=== PATIENT | female | born 1930 | race Caucasian/White ===

== ENCOUNTER 2016-09-05 13:35 | Emergency (ER) | payer MEDICARE ==
[~2016-09-05] VITALS: Ht 167.6 cm; Wt 80.0 kg
[~2016-09-05 13:35] MED LIST: ALBU8I INH; CARV6.25 PO; COUM3TAB PO; FURO1TAB93 PO; LORA0.5T PO; LOVA1TAB47 PO; POTA10IN2 PO; PRED20 PO; TEMA7.5 PO; WARF6 PO; Z.0.WALKERFRONT
[2016-09-05 13:37] VITALS: BP 164/91; PULSE 118; RESP 16; TEMP 97.9; O2SAT 92
[2016-09-05 15:00] VITALS: BP 136/91; PULSE 100; RESP 20; O2SAT 98
[2016-09-05] MEDS ORDERED: WARF-58 PO ×2 (15:02)
[2016-09-05] MEDS ORDERED: LOVA40TA PO (15:02)
[2016-09-05] MEDS ORDERED: VITA100018 PO (15:02)
[2016-09-05] MEDS ORDERED: TEMA15CA PO (15:02)
[2016-09-05] MEDS ORDERED: LORA-373 PO (15:02)
[2016-09-05] MEDS ORDERED: COLA100C3 PO (15:02)
[2016-09-05] MEDS ORDERED: methylPREDNISolone SOD SUCC 125 MG/2 ML VIAL IVP ONE (15:15)
[2016-09-05] MEDS ORDERED: SODIUM CHLORIDE 0.9% FLUSH 5 ML FLUSH IVF PRN (15:15)
--- NOTE | 2016-09-05 15:22 | PD ---
HPI Chief Complaint: Respiratory Distress Time Seen by Provider: 14:53 Travel History International Travel<30 days: No Contact w/Intl Traveler<30days: No Traveled to known affect area: No History of Present Illness HPI 86 years old female complains of wheezing and shortness of breath. Patient has history of reactive airway disease. Patient that she has increasing wheezing and shortness of breath recently. Patient has been using albuterol inhaler without relief. Patient denies any headache. Patient denies any chest pain. Patient denies any coughing congestion. Patient denies any fever chills. Patient denies abdominal pain. PFSH Past Medical History Arthritis: No Asthma: No Atrial Fibrillation: Yes Blood Disorders: No Heart Rhythm Problems: Yes Cancer: No Cardiac Catheterization: Yes Cardiovascular Problems: Yes (CHF, HTN, AFIB) High Cholesterol: Yes Chest Pain: Yes Congestive Heart Failure: Yes COPD: No Coronary Artery Disease: Yes Diabetes: No Diminished Hearing: No Endocrine: No Glaucoma: No Genitourinary: No Hepatitis: No Hiatal Hernia: No Hypertension: Yes Immune Disorder: No Musculoskeletal: Yes Neurologic: No Psychiatric: No Reproductive: No Respiratory: Yes Immunizations Current: Yes Myocardial Infarction: No Sleep Apnea: No Thyroid Disease: No Menopausal: Yes Past Surgical History Abdominal Surgery: No AICD: No Arteriovenous Shunt: No Cardiac Surgery: Yes (CARDIAC CATH) Ear Surgery: No Endocrine Surgery: No Eye Surgery: Yes (CATARACT SX LEFT EYE) Genitourinary Surgery: No Gynecologic Surgery: No Insulin Pump: No Joint Replacement: No Oral Surgery: No Pacemaker: No Thoracic Surgery: No Other Surgery: Yes (SURGERY R. ANKLE) Social History Alcohol Use: Yes (WINE 2X WEEK) Tobacco Use: No Substance Use: No Allergies-Medications (Allergen,Severity, Reaction): Coded Allergies: Codeine (Verified Allergy, Severe, RASH AND VOMITING, 09/05/16) Reported Meds & Prescriptions Reported Meds & Active Scripts Active Reported Warfarin 3 Mg Tab 3 Mg PO THURS Warfarin 3 Mg Tab 3 Mg PO JUSTIN Temazepam 15 Mg Cap 2 Cap PO HS PRN Lovastatin 40 Mg Tab 40 Mg PO DAILY Lorazepam 0.5 Mg Tab 0.5 Mg PO DAILY PRN Colace (Docusate Sodium) 100 Mg Cap 100 Mg PO BID PRN Vitamin D3 (Cholecalciferol) 1,000 Unit Tab 1,000 Units PO DAILY Review of Systems General / Constitutional: No: Fever Eyes: No: Visual changes HENT: No: Headaches Cardiovascular: No: Chest Pain or Discomfort Respiratory: Positive: Shortness of Breath, Wheezing Gastrointestinal: No: Abdominal Pain Genitourinary: No: Dysuria Musculoskeletal: No: Pain Skin: No Rash Neurologic: No: Weakness Psychiatric: No: Depression Endocrine: No: Polydipsia Hematologic/Lymphatic: No: Easy Bruising Physical Exam Narrative GENERAL: Well-nourished, well-developed patient. SKIN: Warm and dry. HEAD: Normocephalic. EYES: No scleral icterus. No injection or drainage. NECK: Supple, trachea midline. No JVD or lymphadenopathy. CARDIOVASCULAR: Regular rate and rhythm without murmurs, gallops, or rubs. RESPIRATORY: Breath sounds equal bilaterally. No accessory muscle use. Patient has mild expiratory wheezes bilaterally. No rhonchi. GASTROINTESTINAL: Abdomen soft, non-tender, nondistended. MUSCULOSKELETAL: No cyanosis, or edema. BACK: Nontender without obvious deformity. No CVA tenderness. Neurologic exam normal. Data Data Last Documented VS Vital Signs Date Time Temp Pulse Resp B/P Pulse Ox O2 Delivery O2 Flow Rate FiO2 09/05/16 15:00 100 20 136/91 98 Room Air 09/05/16 13:37 97.9 Orders Complete Blood Count With Diff (09/05/16 15:04) Comprehensive Metabolic Panel (09/05/16 15:04) B-Type Natriuretic Peptide (09/05/16 15:04) Influenzae A/B Antigen (09/05/16 15:04) Iv Access Insert/Monitor (09/05/16 15:04) Electrocardiogram (09/05/16 15:04) Ecg Monitoring (09/05/16 15:04) Oximetry (09/05/16 15:04) Oxygen Administration (09/05/16 15:04) Chest, Single Ap (09/05/16 15:04) Sodium Chloride 0.9% Flush (Ns Flush) (09/05/16 15:15) Methylprednisolone So Succ Inj (Solumedr (09/05/16 15:15) Albuterol-Ipratropium Neb (Duoneb Neb) (09/05/16 15:15) Labs Laboratory Tests Test 09/05/16 15:13 White Blood Count 8.9 TH/MM3 Red Blood Count 3.79 MIL/MM3 Hemoglobin 11.8 GM/DL Hematocrit 35.5 % Mean Corpuscular Volume 93.6 FL Mean Corpuscular Hemoglobin 31.1 PG Mean Corpuscular Hemoglobin 33.2 % Concent Red Cell Distribution Width 15.4 % Platelet Count 207 TH/MM3 Mean Platelet Volume 8.7 FL Neutrophils (%) (Auto) 76.2 % Lymphocytes (%) (Auto) 10.2 % Monocytes (%) (Auto) 12.2 % Eosinophils (%) (Auto) 1.0 % Basophils (%) (Auto) 0.4 % Neutrophils # (Auto) 6.8 TH/MM3 Lymphocytes # (Auto) 0.9 TH/MM3 Monocytes # (Auto) 1.1 TH/MM3 Eosinophils # (Auto) 0.1 TH/MM3 Basophils # (Auto) 0.0 TH/MM3 CBC Comment DIFF FINAL Differential Comment Sodium Level 138 MEQ/L Potassium Level 3.2 MEQ/L Chloride Level 101 MEQ/L Carbon Dioxide Level 28.4 MEQ/L Anion Gap 9 MEQ/L Blood Urea Nitrogen 16 MG/DL Creatinine 1.13 MG/DL Estimat Glomerular Filtration 46 ML/MIN Rate Random Glucose 106 MG/DL Calcium Level 8.9 MG/DL Total Bilirubin 1.0 MG/DL Aspartate Amino Transf 12 U/L (AST/SGOT) Alanine Aminotransferase 14 U/L (ALT/SGPT) Alkaline Phosphatase 71 U/L Total Protein 7.4 GM/DL Albumin 3.4 GM/DL MDM Medical Decision Making Medical Screen Exam Complete: Yes Emergency Medical Condition: Yes Interpretation(s) Last Impressions Chest X-Ray 09/05/16 1504 Signed Impressions: Service Date/Time: Monday, September 05, 2016 15:06 - CONCLUSION: Significant cardiomegaly without evidence of congestive heart failure. The cardiac silhouette appears increased in size as compared to the prior exam which may be artifact secondary to portable technique. Yvonne King MD 1722 PM. CBC within normal limit. Potassium 3.2. Creatinine 1.13. Differential Diagnosis Differential diagnosis including acute exacerbation reactive airway disease, bronchitis, pneumonia, PE, pneumothorax, CHF. Narrative Course 86 years old female with wheezing and shortness of breath. History of reactive airway disease. Albuterol with Atrovent needed no treatment 2. Solu-Medrol 125 mg IV. Diagnosis Primary Impression: Reactive airway disease with acute exacerbation Patient Instructions: General Instructions Additional Instructions: Albuterol Nebulizer treatment as needed. Follow-up with personal physician. Return if worse. Med/Other Pt SpecificInfo: Prescription(s) given Scripts Prednisone 20 Mg Tab20 Mg PO BID #10 TAB Prov:Anil Figueroa MD 09/05/16 Ipratropium Neb 0.5 Mg/2.5 Ml Amp0.5 Mg NEB Q4HR NEB PRN (SHORTNESS OF BREATH) # 30 NEBULE Ref 0 Prov:Anil Figueroa MD 09/05/16 Albuterol Neb 2.5 Mg/3 Ml Neb2.5 Mg NEB Q4HR NEB PRN (SHORTNESS OF BREATH) #60 NEBULE Ref 0 Prov:Anil Figueroa MD 09/05/16 Nebulizer 1 Mis Mis #1 EA .ROUTE DIRECTED Ref 0 Prov:Anil Figueroa MD 09/05/16 Nebulizer Kit/Tubing/Mout 1 Kit Kit #1 KIT FM DIRECTED Ref 0 Prov:Anil Figueroa MD 09/05/16 Disposition: 01 DISCHARGE HOME Condition: Stable Anil Figueroa MD Sep 05, 2016 15:21
--- NOTE | 2016-09-05 15:28 | RADRPT ---
EXAM DATE/TIME: 09/05/2016 15:06 [facility] COMPARISON: CHEST PA & LAT, June 13, 2016, 8:40. CT BRAIN W/O CONTRAST, June 16, 016, 19:05. INDICATIONS : Short of breath MEDICAL HISTORY : None. Congestive heart failure. Cardiovascular disease Hypertension. SURGICAL HISTORY : None. ENCOUNTER: Initial ACUITY: 2 weeks PAIN SCORE: 0/10 LOCATION: Bilateral chest FINDINGS: A single view of the chest demonstrates the lungs to be symmetrically aerated without evidence of mas s, infiltrate or effusion. There is significant cardiomegaly present. The pulmonary vasculature appea rs normal in caliber. Osseous structures are grossly unremarkable.. Osseous structures are intact. CONCLUSION: Significant cardiomegaly without evidence of congestive heart failure. The cardiac si lhouette appears increased in size as compared to the prior exam which may be artifact secondary to p ortable technique. Yvonne King MD on September 05, 2016 at 15:25 Board Certified Radiologist. This report was verified electronically.
[2016-09-05 15:32] LABS: AUTOMATED NEUTROPHIL # 6.8 TH/MM3 (1.8-7.7); BASOPHIL % 0.4 % (0.0-2.0); EOSINOPHIL # 0.1 TH/MM3 (0-0.4); HEMATOCRIT 35.5 % (35.0-46.0); HEMO FLAGS DIFF FINAL; LYMPH % 10.2 % (9.0-44.0); LYMPHOCYTE # 0.9 TH/MM3 (1.0-4.8); MEAN CELL VOLUME 93.6 FL (80.0-100.0); MEAN CORPUSCULAR HEMOGLOBIN 31.1 PG (27.0-34.0); MEAN CORPUSCULAR HGB CONC 33.2 % (32.0-36.0); MONO % 12.2 % (0.0-8.0); NEUT % 76.2 % (16.0-70.0); PLATELET COUNT 207 TH/MM3 (150-450); RED BLOOD COUNT 3.79 MIL/MM3 (4.00-5.30); RED CELL DISTRIBUTION WIDTH 15.4 % (11.6-17.2); WHITE BLOOD COUNT 8.9 TH/MM3 (4.0-11.0)
[2016-09-05] MEDS: RESP: ALBUTEROL 2.5 MG/IPRATROPIUM 0.5 MG NEB (SCH) INH (15:33)
[2016-09-05 16:00] LABS: ALT (GPT) 14 U/L (10-53); ANION GAP 9 MEQ/L (5-15); AST (GOT) 12 U/L (15-37); BICARBONATE 28.4 MEQ/L (21.0-32.0); BLOOD UREA NITROGEN 16 MG/DL (7-18); CHLORIDE 101 MEQ/L (98-107); GLOMERULAR FILTRATION RATE 46 ML/MIN (>89); POTASSIUM 3.2 MEQ/L (3.5-5.1); SODIUM (NA) 138 MEQ/L (136-145)
[2016-09-05 16:02] LABS: ALKALINE PHOSPHATASE 71 U/L (45-117)
[2016-09-05] MEDS ORDERED: NEBUKIT5 FM (17:31)
[2016-09-05] MEDS ORDERED: NEBULIZER1 MI1 (17:31)
[2016-09-05] MEDS ORDERED: PRED20 PO (17:33)
[2016-09-05] MEDS ORDERED: ALBU0.08 NEB (17:33)
[2016-09-05] MEDS ORDERED: IPRA0.02 NEB (17:33)
[2016-09-05 17:54] LABS: APTT (PATIENT) 33.4 SEC (24.3-30.1); INTERNATIONAL NORMALIZED RATIO 2.2 RATIO; PROTHROMBIN TIME - PATIENT 25.3 SEC (9.8-11.6)
[2016-09-05 18:00] VITALS: BP 155/90; PULSE 95; RESP 16; O2SAT 95
[2016-09-05] MEDS ORDERED: POTASSIUM CHLORIDE 20 MEQ CONTROLLED RELEASE TAB PO ONE (18:15)
--- NOTE | 2016-09-06 14:16 | EKG ---
Date Performed: 09/05/2016 Time Performed: 15:26:36 PTAGE: 86 years EKG: ATRIAL FIBRILLATION NONSPECIFIC ST & T-WAVE ABNORMALITY ABNORMAL RHYTHM ECG PREVIOUS TRACING : 06/06/2016 10.48 Since previous tracing, no significant change noted DOCTOR: Juan Rock Interpretating Date/Time 09/06/2016 14:07:08
[2016-11-04] MEDS ORDERED: LOSA50TA PO (15:43)
[2016-11-04] MEDS ORDERED: K DUR (15:43)
== END 2016-09-05 18:36 | disposition home or self-care (01) ==
LOC: NEPE 13:35
DX: J45.901 Unspecified asthma with (acute) exacerbation (principal); I48.91 Unspecified atrial fibrillation; E78.00 Pure hypercholesterolemia, unspecified; I10 Essential (primary) hypertension; I50.9 Heart failure, unspecified; I25.10 Atherosclerotic heart disease of native coronary artery without angina pectoris
CPT/HCPCS: 71010; 80053; 83880; 85025; 85610; 85730; 87804; 93005; 94640; 94664; 96374; 99284; J2930

== ENCOUNTER 2016-11-04 15:07 | Inpatient (IN) | payer MEDICARE ==
[~2016-11-04] VITALS: Ht 165.1 cm; Wt 83.4 kg
[~2016-11-04 15:07] MED LIST changes: +ALBU0.08 NEB; -ALBU8I INH; -CARV6.25 PO; +COLA100C3 PO; -COUM3TAB PO; -FURO1TAB93 PO; +IPRA0.02 NEB; +LORA-373 PO; -LORA0.5T PO; -LOVA1TAB47 PO; +LOVA40TA PO; +NEBUKIT5 FM; +NEBULIZER1 MI1; -POTA10IN2 PO; +TEMA15CA PO; -TEMA7.5 PO; +VITA100018 PO; +WARF-58 PO; -WARF6 PO; -Z.0.WALKERFRONT
[2016-11-04 15:08] VITALS: BP 131/78; PULSE 77; RESP 14; TEMP 98.1; O2SAT 95
[2016-11-04 15:33] VITALS: PULSE 72; RESP 20; O2SAT 98
[2016-11-04] MEDS ORDERED: FURO40TA PO (15:36)
[2016-11-04] MEDS ORDERED: ZOLP5TAB3 PO (15:36)
[2016-11-04] MEDS ORDERED: K DUR ×2 (15:43)
[2016-11-04] MEDS ORDERED: LOSA50TA PO ×2 (15:43)
[2016-11-04] MEDS ORDERED: CARV6.252 PO (15:43)
[2016-11-04] MEDS ORDERED: METO5TAB3 PO (15:43)
[2016-11-04] MEDS ORDERED: SODIUM CHLORID 0.9% 500 ML INJ 500 ML IV SCH (15:45)
[2016-11-04 16:15] LABS: AUTOMATED NEUTROPHIL # 3.8 TH/MM3 (1.8-7.7); BASOPHIL % 0.6 % (0.0-2.0); EOSINOPHIL # 0.1 TH/MM3 (0-0.4); EOSINOPHIL % 2.1 % (0.0-4.0); HEMATOCRIT 37.7 % (35.0-46.0); HEMO FLAGS DIFF FINAL; LYMPHOCYTE # 1.4 TH/MM3 (1.0-4.8); MEAN CELL VOLUME 88.2 FL (80.0-100.0); MEAN CORPUSCULAR HEMOGLOBIN 30.8 PG (27.0-34.0); MEAN CORPUSCULAR HGB CONC 34.9 % (32.0-36.0); MONO % 13.4 % (0.0-8.0); NEUT % 61.9 % (16.0-70.0); PLATELET COUNT 231 TH/MM3 (150-450); RED BLOOD COUNT 4.27 MIL/MM3 (4.00-5.30); RED CELL DISTRIBUTION WIDTH 14.2 % (11.6-17.2); WHITE BLOOD COUNT 6.2 TH/MM3 (4.0-11.0)
--- NOTE | 2016-11-04 16:15 | PD ---
HPI Chief Complaint: Dizziness Time Seen by Provider: 16:10 Travel History International Travel<30 days: No Contact w/Intl Traveler<30days: No Traveled to known affect area: No History of Present Illness HPI 86-year-old female that presents to the ED for evaluation of weakness, dizziness and cough and runny nose. Per patient she's had this for the past 2 days. Per patient she feels like she is given a fall when she stands up. Per patient this has never happened to her before. She denies any spinning sensation. Per patient she's also been feeling weak for the past couple of days. Per patient she has had no fevers but she does have some mild cough and runny nose. She has a history of CHF and takes blood thinners as well. She denies any changes in bowel movement at that she does admit that she is chronically constipated and her last bowel movement was 2 days ago. Somewhat more likely than normal. She has an allergy to codeine. She denies any abdominal discomfort. No chest pain or shortness of breath. She states been compliant with her medications. She does tell me that she was recently admitted to a new diuretic to help with her CHF as well as she was recently given a new sleeping pill with minimal relief. She denies any falls. Denies any history of CVA or ACS. Symptoms get worse when she stands up. Per patient she feels like she can barely even stand because of weakness. Nothing seems to make the symptoms better than laying. PFSH Past Medical History Arthritis: No Asthma: No Atrial Fibrillation: Yes Blood Disorders: No Heart Rhythm Problems: Yes Cancer: No Cardiac Catheterization: Yes Cardiovascular Problems: Yes (CHF, HTN, AFIB) High Cholesterol: Yes Chest Pain: Yes Congestive Heart Failure: Yes COPD: No Coronary Artery Disease: Yes Diabetes: No Diminished Hearing: No Endocrine: No Glaucoma: No Genitourinary: No Hepatitis: No Hiatal Hernia: No Hypertension: Yes Immune Disorder: No Musculoskeletal: Yes Neurologic: No Psychiatric: No Reproductive: No Respiratory: Yes Immunizations Current: Yes Myocardial Infarction: No Sleep Apnea: No Thyroid Disease: No ?: Not Menopausal: Yes Past Surgical History Abdominal Surgery: No AICD: No Arteriovenous Shunt: No Cardiac Surgery: Yes (CARDIAC CATH) Ear Surgery: No Endocrine Surgery: No Eye Surgery: Yes (CATARACT SX LEFT EYE) Genitourinary Surgery: No Gynecologic Surgery: No Insulin Pump: No Joint Replacement: No Oral Surgery: No Pacemaker: No Thoracic Surgery: No Other Surgery: Yes (SURGERY R. ANKLE) Social History Alcohol Use: Yes (WINE X WEEK) Tobacco Use: No Substance Use: No Allergies-Medications (Allergen,Severity, Reaction): Coded Allergies: Codeine (Verified Allergy, Severe, RASH AND VOMITING, 09/05/16) Reported Meds & Prescriptions Reported Meds & Active Scripts Active Prednisone 20 Mg Tab 20 Mg PO BID Ipratropium Neb (Ipratropium [place]) 0.5 Mg/2.5 Ml Amp 0.5 Mg NEB Q4HR NEB PRN Albuterol Neb (Albuterol Sulfate) 2.5 Mg/3 Ml Neb 2.5 Mg NEB Q4HR NEB PRN Nebulizer 1 Mis Mis 1 Ea .ROUTE DIRECTED Nebulizer Kit/Tubing/Mout (N/A) 1 Kit Kit 1 Kit FM DIRECTED Reported Losartan (Losartan Potassium) 50 Mg Tab 50 Mg PO DAILY Metolazone 5 Mg Tab 5 Mg PO DIRECTED [K Dur] 10 Meq BID Carvedilol 6.25 Mg Tab 6.25 Mg PO BID Furosemide 40 Mg Tab 40 Mg PO BID Zolpidem (Zolpidem Tartrate) 5 Mg Tab 5 Mg PO HS PRN Warfarin 3 Mg Tab 1.5 Mg PO THURS Warfarin 3 Mg Tab 3 Mg PO REYNAUEWEHERNANATSUN Temazepam 15 Mg Cap 2 Cap PO HS PRN Lovastatin 40 Mg Tab 40 Mg PO DAILY Lorazepam 0.5 Mg Tab 0.5 Mg PO DAILY PRN Colace (Docusate Sodium) 100 Mg Cap 100 Mg PO BID PRN Vitamin D3 (Cholecalciferol) 1,000 Unit Tab 1,000 Units PO DAILY Review of Systems General / Constitutional: No: Fever, Chills, Weight Gain, Weight Loss, Other Eyes: No: Diploplia, Blurred Vision, Photophobia, Drainage, Redness, Foreign Body Sensation, Pain, Tearing, Blind Spots, Visual changes, Blindness, Other HENT: Positive: Vertigo, Lightheadedness, Rhinitis, Congestion, No: Headaches , Sore Throat, Rhinorrhea, Nosebleed, Neck Stiffness, Neck Pain, Masses, Gingival Bleeding, Dental Difficulties, Ear Discharge, Earache, Other Cardiovascular: No: Chest Pain or Discomfort, Palpitations, Irregular Rhythm, Tachycardia, Diaphoresis, Syncope, Dyspnea on exertion, Varicosities, Edema, Cyanosis, Varicosities, Phlebitis, Claudication, Other Respiratory: Positive: Cough, No: Shortness of Breath, Wheezing, Sneezing, Orthopnea, Hemoptysis, Stridor, Night Sweats, Pleuritic Pain, Other Gastrointestinal: Positive: Constipation, No: Nausea, Vomiting, Diarrhea, Abdominal Pain, Hematemesis, Hematochezia, Changes in Bowel Habits, Indigestion , Dysphagia, Loss of Appetite, Other Genitourinary: No: Urgency, Frequency, Dysuria, Nocturia, Hematuria, Decreased Urinary Output, Oliguria, Hesitancy, Dribbling, Incontinence, Pelvic Pain, Flank Pain, Dyspareunia, Discharge, Dysmenorrhea, Menorrhagia, Metorrhagia, Vaginal Bleeding, Other Musculoskeletal: Positive: Weakness, No: Myalgias, Arthralgias, Limited ROM, Cramping, Edema, Pain, Atrophy, Other Skin: No Rash, No Itching, No Dryness, No Lumps, No Hives, No Change in Pigmentation, No Change in nails, No Alopecia, No Lesions, No Breast Lumps, No Breast Tenderness, No Breast Swelling, No Other Neurologic: Positive: Weakness, Dizziness, No: Syncope, Focal Abnormalities, Coordination Problem, Tremor, Ataxia, Headache, Change in Mentation, Slurred Speech, Paresthesia, Incontinence, Seizures, Sensory Disturbance, Other Psychiatric: No: Anxiety, Depression, Suicidal Ideations, Disorder of Thought, Mood Disorder, Substance Abuse, Homicidal Ideation, Other Endocrine: No: Heat Intolerance, Cold Intolerance, Polyuria, Polydipsia, Other Hematologic/Lymphatic: No: Easy Bruising, Lymph Node Enlargement, Other Physical Exam Narrative GENERAL: SKIN: Warm and dry. HEAD: Atraumatic. Normocephalic. EYES: Pupils equal and round. No scleral icterus. No injection or drainage. ENT: No nasal bleeding or discharge. Mucous membranes pink and moist. Tongue is midline. No Uvula deviation. TMs are clear with no sign of infection or perforation. No meningeal signs noted. No lymphadenopathy noted. Nostrils are patent bilaterally. NECK: Trachea midline. No JVD. CARDIOVASCULAR: Regular rate and rhythm. No murmurs, S3, S4. RESPIRATORY: No accessory muscle use. Clear to auscultation. Breath sounds equal bilaterally. GASTROINTESTINAL: Abdomen soft, non-tender, nondistended. Hepatic and splenic margins not palpable. MUSCULOSKELETAL: Extremities without clubbing, cyanosis, or edema. No obvious deformities. Full range of motion of the upper and lower extremities bilaterally. 2+ pulses bilaterally. 5 out of 5 strength bilaterally. NEUROLOGICAL: Awake and alert. No obvious cranial nerve deficits. Motor grossly within normal limits. Five out of 5 muscle strength in the arms and legs. Normal speech. PSYCHIATRIC: Appropriate mood and affect; insight and judgment normal. Data Data Last Documented VS Vital Signs Date Time Temp Pulse Resp B/P Pulse Ox O2 Delivery O2 Flow Rate FiO2 11/04/16 15:33 72 20 98 Room Air 11/04/16 15:08 98.1 Orders Electrocardiogram (11/04/16 15:36) Complete Blood Count With Diff (11/04/16 15:36) Comprehensive Metabolic Panel (11/04/16 15:36) Ckmb (Isoenzyme) Profile (11/04/16 15:36) Troponin I (11/04/16 15:36) Prothrombin Time / Inr (Pt) (11/04/16 15:36) Act Partial Throm Time (Ptt) (11/04/16 15:36) Urinalysis - C+S If Indicated (11/04/16 15:36) Magnesium (Mg) (11/04/16 15:36) Thyroid Stimulating Hormone (11/04/16 15:36) Chest, Single Ap (11/04/16 15:36) Ct Brain W/O Iv Contrast(Rout) (11/04/16 15:36) Iv Access Insert/Monitor (11/04/16 15:36) Ecg Monitoring (11/04/16 15:36) Oximetry (11/04/16 15:36) Sodium Chlorid 0.9% 500 Ml Inj (Ns 500 M (11/04/16 15:45) B-Type Natriuretic Peptide (11/04/16 15:38) Influenzae A/B Antigen (11/04/16 15:45) Orthostatic Vital Signs (11/04/16 15:45) Sodium Chlorid 0.9% 500 Ml Inj (Ns 500 M (11/04/16 17:05) Ns + Kcl 20 Meq Inj (Ns + Kcl 20 Meq Inj (11/04/16 17:15) Labs Laboratory Tests Test 11/04/16 16:05 White Blood Count 6.2 TH/MM3 Red Blood Count 4.27 MIL/MM3 Hemoglobin 13.2 GM/DL Hematocrit 37.7 % Mean Corpuscular Volume 88.2 FL Mean Corpuscular Hemoglobin 30.8 PG Mean Corpuscular Hemoglobin 34.9 % Concent Red Cell Distribution Width 14.2 % Platelet Count 231 TH/MM3 Mean Platelet Volume 7.8 FL Neutrophils (%) (Auto) 61.9 % Lymphocytes (%) (Auto) 22.0 % Monocytes (%) (Auto) 13.4 % Eosinophils (%) (Auto) 2.1 % Basophils (%) (Auto) 0.6 % Neutrophils # (Auto) 3.8 TH/MM3 Lymphocytes # (Auto) 1.4 TH/MM3 Monocytes # (Auto) 0.8 TH/MM3 Eosinophils # (Auto) 0.1 TH/MM3 Basophils # (Auto) 0.0 TH/MM3 CBC Comment DIFF FINAL Differential Comment Prothrombin Time 17.2 SEC Prothromb Time International 1.5 RATIO Ratio Activated Partial 28.3 SEC Thromboplast Time Sodium Level 119 MEQ/L Potassium Level 2.8 MEQ/L Chloride Level 77 MEQ/L Carbon Dioxide Level 28.4 MEQ/L Anion Gap 14 MEQ/L Blood Urea Nitrogen 40 MG/DL Creatinine 1.38 MG/DL Estimat Glomerular Filtration 36 ML/MIN Rate Random Glucose 95 MG/DL Calcium Level 8.8 MG/DL Magnesium Level 2.0 MG/DL Total Bilirubin 0.5 MG/DL Aspartate Amino Transf 38 U/L (AST/SGOT) Alanine Aminotransferase 34 U/L (ALT/SGPT) Alkaline Phosphatase 82 U/L Total Creatine Kinase 86 U/L Troponin I 0.02 NG/ML B-Type Natriuretic Peptide 127 PG/ML Total Protein 7.2 GM/DL Albumin 3.5 GM/DL Thyroid Stimulating Hormone 1.910 uIU/ML rust Gen [facility] Medical Decision Making Medical Screen Exam Complete: Yes Emergency Medical Condition: Yes Medical Record Reviewed: Yes Interpretation(s) CBC & BMP Diagram 11/04/16 16:05 EKG shows sinus rhythm with no sign of acute ischemia or arrhythmia rhythm and attending. LFTs and lipase negative. Troponin negative. Last Impressions Head CT 11/04/16 2596 Signed Impressions: Service Date/Time: Friday, November 04, 2016 16:18 - CONCLUSION: 1. No acute intracranial abnormality. 2. Chronic white matter changes. 3. Chronic sphenoid sinus disease. Kaleb Gaspar MD Chest X-Ray 11/04/16 1536 Signed Impressions: Service Date/Time: Friday, November 04, 2016 16:29 - CONCLUSION: No acute cardiopulmonary disease demonstrated. Mild compensated cardiomegaly. Kaleb Gaspar MD Differential Diagnosis CHF exacerbation versus generalized weakness versus ACS versus CVA versus viral illness versus sepsis versus dehydration versus kidney failure Narrative Course 86-year-old female that presents to the ED for evaluation of weakness as well as dizziness. Patient was properly examined and was found to have signs and symptoms consistent with appears to be weakness and lightheadedness. Unclear etiology at this time. She does have unfortunately multiple risk factors for different disease. We will do workup. She agrees to this. Labs and imaging showed hyponatremia and hypokalemia. I spoke with my attending Dr. Galvan who evaluated the patient with me and recommends admission as well starting patient on 500 NS bolus and 20 mEQ of KCL with saline 250 mls. Case was discussed with Dr. Reagan who agrees to admission for his service. Diagnosis Primary Impression: Acute hyponatremia Additional Impressions: Hypokalemia Weakness Admitting Information Admitting Physician Requests: Admit Howard Whitaker Nov 04, 2016 16:15
[2016-11-04 16:28] LABS: APTT (PATIENT) 28.3 SEC (24.3-30.1); INTERNATIONAL NORMALIZED RATIO 1.5 RATIO; PROTHROMBIN TIME - PATIENT 17.2 SEC (9.8-11.6)
--- NOTE | 2016-11-04 16:28 | RADRPT ---
EXAM DATE/TIME: 11/04/2016 16:18 [facility] COMPARISON: CT BRAIN W/O CONTRAST, June 16, 2016, 19:05. INDICATIONS : Dizzy with generalized weakness. RADIATION DOSE: 36.24 CTDIvol (mGy) MEDICAL HISTORY : Hypertension. Cardiovascular disease SURGICAL HISTORY : None. ENCOUNTER: Initial ACUITY: 1 day PAIN SCALE: 0/10 LOCATION: cranial TECHNIQUE: Multiple contiguous axial images were obtained of the head. Using automated exposure control and adj ustment of the mA and/or kV according to patient size, radiation dose was kept as low as reasonably a chievable to obtain optimal diagnostic quality images. FINDINGS: CEREBRUM: The ventricles are normal for age. No evidence of midline shift, mass lesion, hemorrhage or acute in farction. No extra-axial fluid collections are seen. Chronic low attenuation seen in the periventric ular white matter and there is mild atrophy. POSTERIOR FOSSA: The cerebellum and brainstem are intact. The 4th ventricle is midline. The cerebellopontine angle i s unremarkable. EXTRACRANIAL: Mucoperiosteal thickening again noted in the bilateral sphenoid air cells, similar to before. SKULL: The calvaria is intact. No evidence of skull fracture. CONCLUSION: 1. No acute intracranial abnormality. 2. Chronic white matter changes. 3. Chronic sphenoid sinus disease. Kaleb Gaspar MD on November 04, 2016 at 16:26 Board Certified Radiologist. This report was verified electronically.
[2016-11-04 16:51] LABS: ALKALINE PHOSPHATASE 82 U/L (45-117); ALT (GPT) 34 U/L (10-53); ANION GAP 14 MEQ/L (5-15); AST (GOT) 38 U/L (15-37); BICARBONATE 28.4 MEQ/L (21.0-32.0); BLOOD UREA NITROGEN 40 MG/DL (7-18); CHLORIDE 77 MEQ/L (98-107); GLOMERULAR FILTRATION RATE 36 ML/MIN (>89); TOTAL BILIRUBIN ADULT 0.5 MG/DL (0.2-1.0)
--- NOTE | 2016-11-04 16:53 | RADRPT ---
EXAM DATE/TIME: 11/04/2016 16:29 [facility] COMPARISON: CHEST SINGLE AP, September 05, 2016, 15:06. INDICATIONS : Short of breath and syncope MEDICAL HISTORY : Congestive heart failure. Cardiovascular disease Hypertension. SURGICAL HISTORY : None. ENCOUNTER: Initial ACUITY: 1 day PAIN SCORE: 0/10 LOCATION: Bilateral chest FINDINGS: No infiltrate, effusion or pneumothorax demonstrated. There is mild cardiomegaly similar to before. T ortuous thoracic aorta again seen. CONCLUSION: No acute cardiopulmonary disease demonstrated. Mild compensated cardiomegaly. Kaleb Gaspar MD on November 04, 2016 at 16:51 Board Certified Radiologist. This report was verified electronically.
[2016-11-04 16:57] LABS: CREATINE KINASE 86 U/L (26-192)
[2016-11-04 16:59] LABS: SODIUM (NA) 119 MEQ/L (136-145)
[2016-11-04 17:00] LABS: POTASSIUM 2.8 MEQ/L (3.5-5.1)
[2016-11-04] MEDS ORDERED: SODIUM CHLORID 0.9% IV STA (17:05)
[2016-11-04 17:11] VITALS: BP 137/79; PULSE 73; RESP 20; O2SAT 99
[2016-11-04] MEDS ORDERED: NS + KCL 20 MEQ INJ 1,000 ML IV ONE (17:15)
[2016-11-04] MEDS ORDERED: NS + KCL 20 MEQ INJ 1,000 ML IV SCH (17:15)
--- NOTE | 2016-11-04 17:23 | HHI.HP ---
HPI Service [facility] Hospitalists Primary Care Physician Nestor Chung MD Admission Diagnosis hyponatremia Chief Complaint: dizzy Travel History International Travel<30 Days: No Contact w/Intl Traveler <30 Da: No Traveled to Known Affected Are: No History of Present Illness Pt is 86 yo with systolic chf ef 45%. was admitted on May for chf exacerbation. Pt says she was started on zaroxlyn 2 or 3 weeks ago. Over past 3 days more dizzy upon standing, generally weak. no n/v/d. no fevers/chills. In ED pt found to be dehydrated with a/ckd3, hyponatremia and hypokalemia. started on ivf in ED. Review of Systems Other dizzy with standing. weakness Past Family Social History Past Medical History Nonischemic cardiomyopathy 06/12 echo ef 45%..was 35-40% in 2014 Systolic CHF Chronic atrial fibrillation on chronic warfarin therapy Hypertension Hyperlipidemia Coronary artery disease/angina pectoris Stage 3 CKD/Hypertensive CKD, GERD/Hiatal hernia Mild carotid artery disease, carotid ultrasound on 11-12-12 showed mild bilateral plaque of <35%. Osteopenia Hx of TIA in February 2011. Mitral regurgitation Aortic valve stenosis Diverticulosis Vitamin D insufficiency 2D echo on 07-21-15 showed an EF of 35-40% and she had mild to moderate aortic stenosis, mild mitral regurgitation, moderate tricuspid regurgitation. Cardiac cath on 11-01-07 --> noncritical coronary artery disease with a 40% ostial stenosis of the LAD on Cataract surgery Reported Medications Losartan (Losartan Potassium) 50 Mg Tab 50 Mg PO DAILY Metolazone 5 Mg Tab 5 Mg PO DIRECTED [K Dur] 10 Meq BID Carvedilol 6.25 Mg Tab 6.25 Mg PO BID Furosemide 40 Mg Tab 40 Mg PO BID Zolpidem (Zolpidem Tartrate) 5 Mg Tab 5 Mg PO HS PRN Warfarin 3 Mg Tab 1.5 Mg PO THURS Warfarin 3 Mg Tab 3 Mg PO JUANITON Temazepam 15 Mg Cap 2 Cap PO HS PRN Lovastatin 40 Mg Tab 40 Mg PO DAILY Lorazepam 0.5 Mg Tab 0.5 Mg PO DAILY PRN Colace (Docusate Sodium) 100 Mg Cap 100 Mg PO BID PRN Vitamin D3 (Cholecalciferol) 1,000 Unit Tab 1,000 Units PO DAILY Allergies: Coded Allergies: Codeine (Verified Allergy, Severe, RASH AND VOMITING, 3/17/17) Family History Brother with hx of CAD/CABG Brother with hx of lung cancer Mother with hx of CAD Social History Denies any tobacco use Occasional alcohol use, glass of wine 1-2 times per week Pt lives alone, she is 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 Physical Exam Vital Signs heent neg heart reg lung cta abd s/nt ext no edema Vital Signs Date Time Temp Pulse Resp B/P Pulse Ox O2 Delivery O2 Flow Rate FiO2 11/04/16 17:11 73 20 137/79 99 Room Air 11/04/16 15:33 72 20 98 Room Air 11/04/16 15:08 98.1 77 14 131/78 95 Room Air Laboratory Laboratory Tests Test 11/04/16 16:05 White Blood Count 6.2 Red Blood Count 4.27 Hemoglobin 13.2 Hematocrit 37.7 Mean Corpuscular Volume 88.2 Mean Corpuscular Hemoglobin 30.8 Mean Corpuscular Hemoglobin 34.9 Concent Red Cell Distribution Width 14.2 Platelet Count 231 Mean Platelet Volume 7.8 Neutrophils (%) (Auto) 61.9 Lymphocytes (%) (Auto) 22.0 Monocytes (%) (Auto) 13.4 Eosinophils (%) (Auto) 2.1 Basophils (%) (Auto) 0.6 Neutrophils # (Auto) 3.8 Lymphocytes # (Auto) 1.4 Monocytes # (Auto) 0.8 Eosinophils # (Auto) 0.1 Basophils # (Auto) 0.0 CBC Comment DIFF FINAL Differential Comment Prothrombin Time 17.2 Prothromb Time International 1.5 Ratio Activated Partial 28.3 Thromboplast Time Sodium Level 119 Potassium Level 2.8 Chloride Level 77 Carbon Dioxide Level 28.4 Anion Gap 14 Blood Urea Nitrogen 40 Creatinine 1.38 Estimat Glomerular Filtration 36 Rate Random Glucose 95 Calcium Level 8.8 Magnesium Level 2.0 Total Bilirubin 0.5 Aspartate Amino Transf 38 (AST/SGOT) Alanine Aminotransferase 34 (ALT/SGPT) Alkaline Phosphatase 82 Total Creatine Kinase 86 Troponin I 0.02 B-Type Natriuretic Peptide 127 Total Protein 7.2 Albumin 3.5 Thyroid Stimulating Hormone 1.910 3rd Gen Result Diagram: 11/04/16 1605 11/04/16 1605 Assessment and Plan Problem List: (1) Hyponatremia Status: Acute Plan: Pt has chronic systolic chf. currently compensated. recently had metolazone added to lasix over past 3 days she is weak, dizzy upon standing w/up reveals severe dehydration, hyponatremia,hypokalemia, and mild acute /ckd 3 hold diuretics tonight gentle NS replace kcl monitor na level closely telemetry dvt prophylaxis once fluid resuscitated and lytes corrected will need to resume the lasix for her chf. (2) Hypokalemia Status: Acute Plan: see above (3) Weakness Status: Acute Plan: above (4) Dehydration Status: Acute Plan: above (5) Systolic CHF Status: Chronic Plan: compensated. echo 2016 ef 45\% (6) HTN (hypertension) Status: Chronic Plan: home meds (7) CKD (chronic kidney disease) stage 3, GFR 30-59 ml/min Status: Chronic Plan: see above Physician Certification 2 Midnight Certification Type: Admission for Inpatient Services Order for Inpatient Services 3The services are ordered in accordance with Medicare regulations or non- Medicare payer requirements, as applicable. In the case of services not specified as inpatient-only, they are appropriately provided as inpatient services in accordance with the 2-midnight benchmark. Estimated LOS (days): 3 3 days is the estimated time the patient will need to remain in the hospital, assuming treatment plan goals are met and no additional complications. Post-Hospital Plan: Home Pedro Doyle MD Nov 04, 2016 17:23
[2016-11-04] MEDS ORDERED: RESP: ALBUTEROL 2.5 MG/IPRATROPIUM 0.5 MG NEB (PRN) NEB (17:30)
[2016-11-04] MEDS ORDERED: POTASSIUM CHLORIDE 20 MEQ CONTROLLED RELEASE TAB PO ONE (17:30)
--- NOTE | 2016-11-04 17:48 | PD ---
Physical Exam Date Seen by Provider: Nov 04, 2016 Time Seen by Provider: 16:30 Narrative I, Dr. Eaton, have reviewed the advance practice practitioner's documentation and am in agreement, met with the patient face to face, made the diagnosis, and the medical decision making was done by me. *My assessment and Findings: Patient seen and evaluated with PA, please see. Note for further details. She presents to the ER feeling dizzy, nauseous, and has recently been started on new medications by her primary care physician. She has no focal neurological deficits. She is awake, alert, oriented 3. Pulmonary, abdominal, and cardiac enzymes are unremarkable. A. fib at a ventricular rate of 70 bpm, no ST elevation or depression, and no arrhythmias. No significant T-wave inversions. Laboratory Tests Test 11/04/16 16:05 Monocytes (%) (Auto) 13.4 % (0.0-8.0) Prothrombin Time 17.2 SEC (9.8-11.6) Sodium Level 119 MEQ/L (136-145) Potassium Level 2.8 MEQ/L (3.5-5.1) Chloride Level 77 MEQ/L (98-107) Blood Urea Nitrogen 40 MG/DL (7-18) Creatinine 1.38 MG/DL (0.50-1.00) Estimat Glomerular Filtration 36 ML/MIN (>89) Rate Aspartate Amino Transf 38 U/L (15-37) (AST/SGOT) B-Type Natriuretic Peptide 127 PG/ML (0-100) Last [address] 11/04/16 1536 Signed Impressions: Service Date/Time: Friday, November 04, 2016 16:18 - CONCLUSION: 1. No acute intracranial abnormality. 2. Chronic white matter changes. 3. Chronic sphenoid sinus disease. Kaleb Gaspar MD Chest X-Ray 11/04/16 1536 Signed Impressions: Service Date/Time: Friday, November 04, 2016 16:29 - CONCLUSION: No acute cardiopulmonary disease demonstrated. Mild compensated cardiomegaly. Kaleb Gaspar MD Lab work shows significant hyponatremia and hypokalemia. IV potassium replacement and normal saline bolus was given in the ER. At this point, plan would be to admit the patient for further evaluation and treatment. Case is discussed with Dr. Doyle for admission. Data Data Last Documented VS Vital Signs Date Time Temp Pulse Resp B/P Pulse Ox O2 Delivery O2 Flow Rate FiO2 11/04/16 17:11 73 20 137/79 99 Room Air 11/04/16 15:08 98.1 Orders Electrocardiogram (11/04/16 15:36) Complete Blood Count With Diff (11/04/16 15:36) Comprehensive Metabolic Panel (11/04/16 15:36) Ckmb (Isoenzyme) Profile (11/04/16 15:36) Troponin I (11/04/16 15:36) Prothrombin Time / Inr (Pt) (11/04/16 15:36) Act Partial Throm Time (Ptt) (11/04/16 15:36) Urinalysis - C+S If Indicated (11/04/16 15:36) Magnesium (Mg) (11/04/16 15:36) Thyroid Stimulating Hormone (11/04/16 15:36) Chest, Single Ap (11/04/16 15:36) Ct Brain W/O Iv Contrast(Rout) (11/04/16 15:36) Iv Access Insert/Monitor (11/04/16 15:36) Ecg Monitoring (11/04/16 15:36) Oximetry (11/04/16 15:36) Sodium Chlorid 0.9% 500 Ml Inj (Ns 500 M (11/04/16 15:45) B-Type Natriuretic Peptide (11/04/16 15:38) Influenzae A/B Antigen (11/04/16 15:45) Orthostatic Vital Signs (11/04/16 15:45) Sodium Chlorid 0.9% 500 Ml Inj (Ns 500 M (11/04/16 17:05) Ns + Kcl 20 Meq Inj (Ns + Kcl 20 Meq Inj (11/04/16 17:15) Ns + Kcl 20 Meq Inj (Ns + Kcl 20 Meq Inj (11/04/16 17:15) Admit To Inpatient (11/04/16 ) Inpatient Certification (11/04/16 ) Motor Builder Winder / Telemetry PERICO.Q8H (11/04/16 17:23) Vital Signs (Adult) PERICO.Q4H (11/04/16 17:23) Scd Bilateral/Knee High PERICO.QSHIFT (11/04/16 17:23) Complete Blood Count With Diff (11/05/16 06:00) Basic Metabolic Panel (Bmp) (11/05/16 06:00) Magnesium (Mg) (11/05/16 06:00) Phosphorus (Po4) (11/05/16 06:00) Diet Heart Healthy (11/04/16 Dinner) Basic Metabolic Panel (Bmp) (11/04/16 21:00) Admit Order (Ed Use Only) (11/04/16 17:25) Potassium Chloride (Kcl) (11/04/16 17:30) Activity Oob With Assistance (11/04/16 17:27) Prothrombin Time / Inr (Pt) (11/05/16 06:00) Labs Laboratory Tests Test 11/04/16 16:05 White Blood Count 6.2 TH/MM3 Red Blood Count 4.27 MIL/MM3 Hemoglobin 13.2 GM/DL Hematocrit 37.7 % Mean Corpuscular Volume 88.2 FL Mean Corpuscular Hemoglobin 30.8 PG Mean Corpuscular Hemoglobin 34.9 % Concent Red Cell Distribution Width 14.2 % Platelet Count 231 TH/MM3 Mean Platelet Volume 7.8 FL Neutrophils (%) (Auto) 61.9 % Lymphocytes (%) (Auto) 22.0 % Monocytes (%) (Auto) 13.4 % Eosinophils (%) (Auto) 2.1 % Basophils (%) (Auto) 0.6 % Neutrophils # (Auto) 3.8 TH/MM3 Lymphocytes # (Auto) 1.4 TH/MM3 Monocytes # (Auto) 0.8 TH/MM3 Eosinophils # (Auto) 0.1 TH/MM3 Basophils # (Auto) 0.0 TH/MM3 CBC Comment DIFF FINAL Differential Comment Prothrombin Time 17.2 SEC Prothromb Time International 1.5 RATIO Ratio Activated Partial 28.3 SEC Thromboplast Time Sodium Level 119 MEQ/L Potassium Level 2.8 MEQ/L Chloride Level 77 MEQ/L Carbon Dioxide Level 28.4 MEQ/L Anion Gap 14 MEQ/L Blood Urea Nitrogen 40 MG/DL Creatinine 1.38 MG/DL Estimat Glomerular Filtration 36 ML/MIN Rate Random Glucose 95 MG/DL Calcium Level 8.8 MG/DL Magnesium Level 2.0 MG/DL Total Bilirubin 0.5 MG/DL Aspartate Amino Transf 38 U/L (AST/SGOT) Alanine Aminotransferase 34 U/L (ALT/SGPT) Alkaline Phosphatase 82 U/L Total Creatine Kinase 86 U/L Troponin I 0.02 NG/ML B-Type Natriuretic Peptide 127 PG/ML Total Protein 7.2 GM/DL Albumin 3.5 GM/DL Thyroid Stimulating Hormone 1.910 uIU/ML 3rd Gen [facility] Medical Record Reviewed: Yes Supervised Visit with MICAELA: Yes Diagnosis Primary Impression: Acute hyponatremia Additional Impressions: Weakness Hypokalemia Admitting Information Admitting Physician Requests: Admit Chayito Eaton MD Nov 04, 2016 17:48
[2016-11-04] MEDS: NS + KCL 40 MEQ INJ 1,000 ML IV SCH (18:59)
[2016-11-04] MEDS: WARFARIN SOD 3 MG TAB PO SCH (19:42)
[2016-11-04 20:00] VITALS: BP 155/78; PULSE 62; RESP 18; TEMP 97.5; O2SAT 94
[2016-11-04 20:13] VITALS: BP 140/90; PULSE 88; RESP 18; TEMP 98.1; O2SAT 100
[2016-11-04] MEDS ORDERED: OSELTAMIVIR PHOSPHATE 75 MG CAP PO ONE (22:00)
[2016-11-04 22:11] VITALS: PULSE 73
[2016-11-04] MEDS: CARVEDILOL 6.25 MG TAB PO SCH (22:55)
[2016-11-04] MEDS: PRAVASTATIN SOD 40 MG TAB PO SCH (22:55)
[2016-11-04] MEDS: ZOLPIDEM TARTRATE 5 MG TAB PO PRN (22:57)
[2016-11-04 23:35] LABS: BICARBONATE 32.2 MEQ/L (21.0-32.0)
[2016-11-04 23:45] LABS: POTASSIUM 2.9 MEQ/L (3.5-5.1)
[2016-11-05] VITALS (7 sets, daily range): BP systolic 89–145; BP diastolic 56–82; PULSE 66–89; RESP 16–20; TEMP 97.2–98.2; O2SAT 94–97
[2016-11-05] MEDS: LORazepam 0.5 MG TAB PO PRN (04:30)
[2016-11-05] MEDS ORDERED: POTASSIUM CHLORIDE 20 MEQ CONTROLLED RELEASE TAB PO ONE (07:00)
[2016-11-05 07:05] LABS: AUTOMATED NEUTROPHIL # 3.3 TH/MM3 (1.8-7.7); BASOPHIL % 0.5 % (0.0-2.0); EOSINOPHIL # 0.1 TH/MM3 (0-0.4); EOSINOPHIL % 2.5 % (0.0-4.0); HEMATOCRIT 35.2 % (35.0-46.0); HEMO FLAGS DIFF FINAL; LYMPH % 20.2 % (9.0-44.0); LYMPHOCYTE # 1.1 TH/MM3 (1.0-4.8); MEAN CELL VOLUME 87.7 FL (80.0-100.0); MEAN CORPUSCULAR HEMOGLOBIN 30.2 PG (27.0-34.0); MEAN CORPUSCULAR HGB CONC 34.5 % (32.0-36.0); MONO % 15.8 % (0.0-8.0); PLATELET COUNT 212 TH/MM3 (150-450); RED BLOOD COUNT 4.01 MIL/MM3 (4.00-5.30); RED CELL DISTRIBUTION WIDTH 14.2 % (11.6-17.2); WHITE BLOOD COUNT 5.4 TH/MM3 (4.0-11.0)
[2016-11-05 07:10] LABS: INTERNATIONAL NORMALIZED RATIO 1.5 RATIO; PROTHROMBIN TIME - PATIENT 16.6 SEC (9.8-11.6)
[2016-11-05 07:27] LABS: BICARBONATE 29.9 MEQ/L (21.0-32.0); MAGNESIUM 2.1 MG/DL (1.5-2.5)
[2016-11-05] MEDS: NS + KCL 40 MEQ INJ 1,000 ML IV SCH ×2 (08:18→19:45)
[2016-11-05] MEDS ORDERED: POTASSIUM CHLORIDE 20 MEQ CONTROLLED RELEASE TAB PO SCH (09:00)
[2016-11-05] MEDS ORDERED: LOSARTAN 50 MG TAB PO SCH (09:00)
[2016-11-05] MEDS: CARVEDILOL 6.25 MG TAB PO SCH ×2 (10:06→20:50)
[2016-11-05] MEDS: OSELTAMIVIR PHOSPHATE 30 MG CAP PO SCH ×2 (10:06→20:51)
--- NOTE | 2016-11-05 11:42 | HHI.PR ---
Subjective Remarks seems less weak and dizzy had some right ear pain with swallowing. Objective Vitals heart reg lung cta abd s/nt ext no edema right ear canal . minor cerum no redness. Vital Signs Date Time Temp Pulse Resp B/P Pulse Ox O2 Delivery O2 Flow Rate FiO2 11/05/16 08:00 97.4 75 16 124/73 94 11/05/16 04:00 97.8 77 20 109/66 97 11/05/16 04:00 Room Air 11/05/16 00:00 Room Air 11/05/16 00:00 97.4 80 18 116/82 97 11/04/16 22:11 73 11/04/16 20:13 98.1 88 18 140/90 100 Room Air 11/04/16 20:00 97.5 62 18 155/78 94 11/04/16 17:11 73 20 137/79 99 Room Air 11/04/16 15:33 72 20 98 Room Air 11/04/16 15:08 98.1 77 14 131/78 95 Room Air 11/04/16 11/04/16 11/05/16 15:00 23:00 07:00 Intake Total 942 ml 511 ml Output Total 450 ml 850 ml Balance 492 ml -339 ml Intake Oral 120 ml IV Total 822 ml 511 ml Output Urine Total 450 ml 850 ml Result Diagram: 11/05/16 0600 11/05/16 0600 A/P Problem List: (1) Hyponatremia Status: Acute Plan: Pt has chronic systolic chf. currently compensated. recently had metolazone added to lasix over past 3 days she is weak, dizzy upon standing w/up reveals severe dehydration, hyponatremia,hypokalemia, and mild acute /ckd 3 also influenza positive in ED hold diuretics gentle NS replace kcl monitor na level closely telemetry dvt prophylaxis once fluid resuscitated and lytes corrected will need to resume the lasix for her chf. tamiflu (2) Influenza A Status: Acute Plan: see above (3) Hypokalemia Status: Acute Plan: see above (4) Weakness Status: Acute Plan: above (5) Dehydration Status: Acute Plan: above (6) Systolic CHF Status: Chronic Plan: compensated. echo 2016 ef 45\% (7) HTN (hypertension) Status: Chronic Plan: home meds (8) CKD (chronic kidney disease) stage 3, GFR 30-59 ml/min Status: Chronic Plan: see above Pedro Doyle MD Nov 05, 2016 11:42
[2016-11-05] MEDS ORDERED: LORATADINE 10 MG TAB PO ONE (13:15)
[2016-11-05 16:59] LABS: BICARBONATE 28.1 MEQ/L (21.0-32.0); POTASSIUM 3.7 MEQ/L (3.5-5.1)
--- NOTE | 2016-11-05 17:38 | EKG ---
Date Performed: 11/04/2016 Time Performed: 17:07:43 PTAGE: 86 years EKG: ATRIAL FIBRILLATION MODERATE INTRAVENTRICULAR CONDUCTION DELAY MODERATE ST DEPRESSION PROLO NGED QT INTERVAL Compared to prior tracing no significant change ABNORMAL ECG PREVIOUS TRACING : 09/05/2016 15.26 DOCTOR: Pedro Saldana Interpretating Date/Time 11/05/2016 17:37:40
[2016-11-05] MEDS: WARFARIN SOD 3 MG TAB PO SCH (17:40)
[2016-11-05] MEDS: PRAVASTATIN SOD 40 MG TAB PO SCH (20:50)
[2016-11-05] MEDS: ZOLPIDEM TARTRATE 5 MG TAB PO PRN (20:55)
[2016-11-06] VITALS (9 sets, daily range): BP systolic 118–151; BP diastolic 64–97; PULSE 75–100; RESP 16–20; TEMP 97.2–98; O2SAT 95–98
[2016-11-06 08:30] LABS: INTERNATIONAL NORMALIZED RATIO 1.5 RATIO; PROTHROMBIN TIME - PATIENT 16.3 SEC (9.8-11.6)
[2016-11-06] MEDS: LORATADINE 10 MG TAB PO SCH (08:31)
[2016-11-06] MEDS: OSELTAMIVIR PHOSPHATE 30 MG CAP PO SCH ×2 (08:31→21:00)
[2016-11-06] MEDS: CARVEDILOL 6.25 MG TAB PO SCH ×2 (08:31→21:18)
[2016-11-06 08:54] LABS: BICARBONATE 29.3 MEQ/L (21.0-32.0); POTASSIUM 4.1 MEQ/L (3.5-5.1)
[2016-11-06] MEDS ORDERED: SODIUM CHLORID 0.9% 500 ML INJ 500 ML IV ONE ×2 (09:45→11:00)
--- NOTE | 2016-11-06 09:49 | HHI.PR ---
Subjective Remarks feels stronger, dizziness better. Objective Vitals heent neg heart reg lung cta abd s/nt ext no edema Vital Signs Date Time Temp Pulse Resp B/P Pulse Ox O2 Delivery O2 Flow Rate FiO2 11/06/16 04:00 98.0 84 16 118/64 95 11/06/16 00:00 97.6 87 16 145/83 97 11/06/16 00:00 Room Air 11/05/16 20:20 85 11/05/16 20:00 97.8 89 18 145/66 97 11/05/16 16:00 97.2 66 18 114/56 97 11/05/16 12:00 98.2 85 16 89/67 97 11/05/16 11/05/16 11/06/16 15:00 23:00 07:00 Intake Total 1180 ml 240 ml Output Total 900 ml Balance 1180 ml -660 ml Intake Oral 1180 ml 240 ml IV Total 0 ml Output Urine Total 900 ml # Voids 6 1 # Bowel Movements 1 0 Result Diagram: 11/05/16 0600 11/06/16 0633 A/P Problem List: (1) Hyponatremia Status: Acute Plan: Pt has chronic systolic chf. currently compensated. recently had metolazone added to lasix over past 3 days she is weak, dizzy upon standing w/up reveals severe dehydration, hyponatremia,hypokalemia, and mild acute /ckd 3 also influenza positive in ED...?error hold diuretics..probably resume just lasix on Monday if na stable and hold metolazone...pt to check wt at home and just take extra prn lasix for weight gain. would get f/u bmp outpt next week. gentle NS replace kcl telemetry dvt prophylaxis tamiflu now but recheck nasal wash as pt not clearly with flu sx's (2) Influenza A Status: Acute Plan: see above (3) Hypokalemia Status: Acute Plan: see above (4) Weakness Status: Acute Plan: above (5) Dehydration Status: Acute Plan: above (6) Systolic CHF Status: Chronic Plan: compensated. echo 2016 ef 45\% (7) HTN (hypertension) Status: Chronic Plan: home meds (8) CKD (chronic kidney disease) stage 3, GFR 30-59 ml/min Status: Chronic Plan: see above Pedro Doyle MD Nov 06, 2016 09:49
[2016-11-06] MEDS: WARFARIN SOD 3 MG TAB PO SCH (19:02)
[2016-11-06] MEDS: PRAVASTATIN SOD 40 MG TAB PO SCH (21:18)
[2016-11-07] VITALS: BP 134/64; PULSE 84; RESP 14; TEMP 98.3; O2SAT 95
[2016-11-07 04:00] VITALS: BP 155/92; PULSE 87; RESP 16; TEMP 97.7; O2SAT 97
[2016-11-07] MEDS: LORazepam 0.5 MG TAB PO PRN (05:23)
[2016-11-07 07:31] LABS: INTERNATIONAL NORMALIZED RATIO 1.6 RATIO; PROTHROMBIN TIME - PATIENT 18.5 SEC (9.8-11.6)
[2016-11-07 07:45] LABS: BICARBONATE 29.9 MEQ/L (21.0-32.0)
[2016-11-07 08:00] VITALS: PULSE 84
[2016-11-07 08:34] VITALS: BP 124/69; PULSE 78; RESP 18; TEMP 98.1; O2SAT 96
[2016-11-07] MEDS: OSELTAMIVIR PHOSPHATE 30 MG CAP PO SCH (08:51)
[2016-11-07] MEDS: LORATADINE 10 MG TAB PO SCH (08:51)
[2016-11-07] MEDS: CARVEDILOL 6.25 MG TAB PO SCH (08:51)
[2016-11-07 12:23] VITALS: BP 103/65; PULSE 74; RESP 19; TEMP 97.6; O2SAT 97
--- NOTE | 2016-11-07 13:38 | HHI.PR ---
Subjective Remarks NO new complaints. Objective Vitals Vital Signs Date Time Temp Pulse Resp B/P Pulse Ox O2 Delivery O2 Flow Rate FiO2 11/07/16 12:23 97.6 74 19 103/65 97 11/07/16 08:34 98.1 78 18 124/69 96 11/07/16 08:20 Room Air 11/07/16 08:00 84 11/07/16 04:00 Room Air 11/07/16 04:00 97.7 87 16 155/92 97 11/07/16 00:00 98.3 84 14 134/64 95 11/07/16 00:00 Room Air 11/06/16 21:18 Room Air 11/06/16 20:02 78 11/06/16 20:00 Room Air 11/06/16 20:00 97.6 100 20 143/87 95 11/06/16 16:05 97.9 78 16 151/82 98 11/06/16 11/06/16 11/07/16 15:00 23:00 07:00 Intake Total 480 ml Balance 480 ml Intake Oral 480 ml # Voids 5 # Bowel Movements 0 Result Diagram: 11/05/16 0600 11/07/16 0702 Imaging Last Impressions Head CT 11/04/16 1536 Signed Impressions: Service Date/Time: Friday, November 04, 2016 16:18 - CONCLUSION: 1. No acute intracranial abnormality. 2. Chronic white matter changes. 3. Chronic sphenoid sinus disease. Kaleb Gaspar MD Chest X-Ray 11/04/16 1536 Signed Impressions: Service Date/Time: Friday, November 04, 2016 16:29 - CONCLUSION: No acute cardiopulmonary disease demonstrated. Mild compensated cardiomegaly. Kaleb Gaspar MD Objective Remarks GENERAL: This is a well-nourished, well-developed patient, in no apparent distress. CARDIOVASCULAR: Regular rate and rhythm without murmurs, gallops, or rubs. RESPIRATORY: Clear to auscultation. Breath sounds equal bilaterally. No wheezes , rales, or rhonchi. GASTROINTESTINAL: Abdomen soft, non-tender, nondistended. Normal active bowel sounds MUSCULOSKELETAL: Extremities without clubbing, cyanosis, or edema. NEURO: Alert & Oriented x4 to person, place, time, situation. Moves all ext x4 A/P Problem List: (1) Hyponatremia Status: Acute Plan: Pt has chronic systolic chf. currently compensated. recently had metolazone added to lasix over past 3 days she is weak, dizzy upon standing w/up reveals severe dehydration, hyponatremia,hypokalemia, and mild acute /ckd 3 also influenza positive in ED...?error telemetry dvt prophylaxis tamiflu now but recheck nasal wash as pt not clearly with flu sx's 11/07/16 - stop IVFs - resume scheduled lasix 40mg PO BID - repeat BMP/Mag in AM - request PT evaluation - anticipate d/c 11/08/16 (2) Influenza A Status: Acute Plan: see above (3) Hypokalemia Status: Acute Plan: see above (4) Weakness Status: Acute Plan: above (5) Dehydration Status: Acute Plan: above (6) Systolic CHF Status: Chronic Plan: compensated. echo 2016 ef 45\% (7) HTN (hypertension) Status: Chronic Plan: home meds (8) CKD (chronic kidney disease) stage 3, GFR 30-59 ml/min Status: Chronic Plan: see above Tito Villalpando DO Nov 07, 2016 13:38
[2016-11-07] MEDS ORDERED: FURO40TA PO (14:18)
--- NOTE | 2016-11-07 14:20 | HHI.FF ---
Face to Face Verification Diagnosis: (1) Congestive heart failure (2) Chronic atrial fibrillation (3) COPD exacerbation (4) HTN (hypertension) (5) CKD (chronic kidney disease) stage 3, GFR 30-59 ml/min Home Health Nursing Order: Medical education Signs/symptoms of disease process CHF education Medication education-adverse effect Nursing assessment with vital signs I have seen patient Sunita Keane on 11/07/16. My clinical findings support the need for the requested home health care services because: Ltd mobility - disease progression Patient has SOB Deconditioned w/ increased weakness Med compliance is questionable Limited ability to care for self Need for psychosocial assistance I certify that my clinical findings support that this patient is homebound because: Unsafe to leave home unassisted Need for psychosocial assistance Unable to use public transportation Poor cardiac reserve Tito Villalpando DO Nov 07, 2016 14:20
--- NOTE | 2016-11-07 14:21 | HHI.DCPOC ---
Discharge Care Plan Diagnosis: (1) Weakness (2) Hyponatremia (3) Hypokalemia (4) Dehydration (5) CKD (chronic kidney disease) stage 3, GFR 30-59 ml/min (6) Chronic atrial fibrillation (7) Systolic CHF (8) HTN (hypertension) Goals to Promote Your Health * To prevent worsening of your condition and complications * To maintain your health at the optimal level Directions to Meet Your Goals Take your medications as prescribed Follow your dietary instruction Follow activity as directed Keep your appointments as scheduled Take your immunizations and boosters as scheduled If your symptoms worsen call your PCP, if no PCP go to Urgent Care Center or Emergency Room Smoking is Dangerous to Your Health. Avoid second hand smoke Call the 24-hour hour crisis hotline for domestic abuse at Tito Villalpando DO Nov 07, 2016 14:21
--- NOTE | 2016-11-07 14:24 | HHI.DS ---
Discharge Summary Admission Date Nov 04, 2016 at 17:27 Admitting Diagnosis hyponatremia (1) Hyponatremia Diagnosis: Principal (2) Influenza A Diagnosis: Principal (3) Hypokalemia Diagnosis: Principal (4) Weakness Diagnosis: Principal (5) Dehydration Diagnosis: Principal (6) Systolic CHF Diagnosis: Principal (7) HTN (hypertension) (8) CKD (chronic kidney disease) stage 3, GFR 30-59 ml/min Diagnosis: Secondary Brief History Pt is 86 yo with systolic chf ef 45%. was admitted on May for chf exacerbation. Pt says she was started on zaroxlyn 2 or 3 weeks ago. Over past 3 days more dizzy upon standing, generally weak. no n/v/d. no fevers/chills. In ED pt found to be dehydrated with a/ckd3, hyponatremia and hypokalemia. started on ivf in ED. CBC/BMP: 11/05/16 0600 11/07/16 0702 Significant Findings Laboratory Tests Test 11/04/16 11/04/16 11/05/16 11/05/16 16:05 22:55 06:00 16:12 Monocytes (%) (Auto) 13.4 % 15.8 % (0.0-8.0) (0.0-8.0) Prothrombin Time 17.2 SEC 16.6 SEC (9.8-11.6) (9.8-11.6) Sodium Level 119 MEQ/L 124 MEQ/L 125 MEQ/L 129 MEQ/L (136-145) (136-145) (136-145) (136-145) Potassium Level 2.8 MEQ/L 2.9 MEQ/L 3.0 MEQ/L (3.5-5.1) (3.5-5.1) (3.5-5.1) Chloride Level 77 MEQ/L 81 MEQ/L 84 MEQ/L 90 MEQ/L (98-107) (98-107) (98-107) (98-107) Blood Urea Nitrogen 40 MG/DL (7-18) 41 MG/DL (7-18) 37 MG/DL (7-18) 33 MG/DL (7- 18) Creatinine 1.38 MG/DL 1.28 MG/DL 1.28 MG/DL 1.13 MG/DL (0.50-1.00) (0.50-1.00) (0.50-1.00) (0.50-1.00) Estimat Glomerular Filtration 36 ML/MIN (>89) 40 ML/MIN (>89) 40 ML/MIN (>89) 46 ML/MIN (>89) Rate Aspartate Amino Transf 38 U/L (15-37) (AST/SGOT) B-Type Natriuretic Peptide 127 PG/ML (0-100) Carbon Dioxide Level 32.2 MEQ/L (21.0-32.0) Test 11/06/16 11/07/16 06:33 07:02 Prothrombin Time 16.3 SEC 18.5 SEC (9.8-11.6) (9.8-11.6) Sodium Level 131 MEQ/L 132 MEQ/L (136-145) (136-145) Chloride Level 91 MEQ/L 94 MEQ/L (98-107) (98-107) Blood Urea Nitrogen 30 MG/DL (7-18) 22 MG/DL (7-18) Creatinine 1.14 MG/DL 1.18 MG/DL (0.50-1.00) (0.50-1.00) Estimat Glomerular Filtration 45 ML/MIN (>89) 43 ML/MIN (>89) Rate PE at Discharge GENERAL: This is a well-nourished, well-developed patient, in no apparent distress. CARDIOVASCULAR: Regular rate and rhythm without murmurs, gallops, or rubs. RESPIRATORY: Clear to auscultation. Breath sounds equal bilaterally. No wheezes , rales, or rhonchi. GASTROINTESTINAL: Abdomen soft, non-tender, nondistended. Normal active bowel sounds MUSCULOSKELETAL: Extremities without clubbing, cyanosis, or edema. NEURO: Alert & Oriented x4 to person, place, time, situation. Moves all ext x4 Hospital Course (1) Hyponatremia Status: Acute Plan: Pt has chronic systolic chf. currently compensated. recently had metolazone added to lasix over past 3 days prior to admission, pt c/o weakness & dizzy upon standing w/up reveals severe dehydration, hyponatremia,hypokalemia, and mild acute /ckd 3 also influenza positive in ED...?error - tamiflue will NOT be continued upon discharge, clinically symptoms NOT c/w influenza &n repeat testing negative - resume lasix at 40mg BID - NO zaroxolyn - Pt to weight daily - if weight gain > 5 pounds in 48 hours then take extra lasix 40mg and call Cardiology or PCP - see discharge orders (2) Influenza A Status: Acute Plan: see above (3) Hypokalemia Status: Acute Plan: see above (4) Weakness Status: Acute Plan: above (5) Dehydration Status: Acute Plan: above (6) Systolic CHF Status: Chronic Plan: compensated. echo 2016 ef 45\% (7) HTN (hypertension) Status: Chronic Plan: home meds (8) CKD (chronic kidney disease) stage 3, GFR 30-59 ml/min Status: Chronic Plan: see above Pt Condition on Discharge: Stable Discharge Disposition: Disch w/ Home Health Serv Discharge Instructions DIET: Follow Instructions for: Heart Healthy Diet Activities you can perform: Regular-No Restrictions Follow up Referrals: Cardiology - [address] Nestor Chung PCP Follow-up - [address] Jim Dave Changed Medications: Furosemide (Furosemide) 40 Mg Tab 40 MG PO BID If weight gain greater than 5 pounds in 48hours, then take extra lasix 40mg and call Cardiology, Dr. Chung chf Days 30 Ref 0 TAB (Medication details modified) Continued Medications: Carvedilol (Carvedilol) 6.25 Mg Tab 6.25 MG PO BID Ref 0 TAB Cholecalciferol (Vitamin D3) 1,000 Unit Tab 1000 UNITS PO DAILY Nutritional Supplement #1 Ref 0 BOTTLE Lorazepam (Lorazepam) 0.5 Mg Tab 0.5 MG PO DAILY PRN ANXIETY Ref 0 TAB Losartan (Losartan) 50 Mg Tab 50 MG PO DAILY Blood Pressure Management Ref 0 TAB Lovastatin (Lovastatin) 40 Mg Tab 40 MG PO DAILY Cholesterol Management #30 Ref 0 TAB Warfarin (Warfarin) 3 Mg Tab 3 MG PO MONTUEWEDFRISATSUN Blood Clot Prevention #30 Ref 0 TAB Warfarin (Warfarin) 3 Mg Tab 1.5 MG PO THURS Blood Clot Prevention #30 Ref 0 TAB Zolpidem (Zolpidem) 5 Mg Tab 5 MG PO HS PRN INSOMNIA Ref 0 TAB ([K Dur]) 10 MEQ BID Discontinued Medications: Albuterol Neb (Albuterol Neb) 2.5 Mg/3 Ml Neb 2.5 MG NEB Q4HR NEB PRN SHORTNESS OF BREATH #60 Ref 0 NEBULE Docusate Sodium (Colace) 100 Mg Cap 100 MG PO BID PRN Constipation #60 Ref 0 CAP Ipratropium Neb (Ipratropium Neb) 0.5 Mg/2.5 Ml Amp 0.5 MG NEB Q4HR NEB PRN SHORTNESS OF BREATH #30 Ref 0 NEBULE Metolazone (Metolazone) 5 Mg Tab 5 MG PO DIRECTED Ref 0 TAB Prednisone (Prednisone) 20 Mg Tab 20 MG PO BID #10 TAB Temazepam (Temazepam) 15 Mg Cap 2 CAP PO HS PRN INSOMNIA #30 Ref 0 CAP Tito Villalpando DO Nov 07, 2016 14:24
[2016-11-07] MEDS ORDERED: FUROSEMIDE 40 MG TAB PO SCH (21:00)
[2016-11-10] MEDS ORDERED: WARFARIN SOD 3 MG TAB PO SCH (16:00)
== END 2016-11-07 15:25 | disposition home health service (06) | DRG 641 ==
LOC: NEPE 15:07 → NEDA 17:27 → N04A 20:22
PROVIDERS: ADMIT Hospitalist; ATTEND Hospitalist
DX: E87.6 Hypokalemia (principal); E86.0 Dehydration; I42.9 Cardiomyopathy, unspecified; I50.22 Chronic systolic (congestive) heart failure; I48.91 Unspecified atrial fibrillation; E55.9 Vitamin D deficiency, unspecified; E87.1 Hypo-osmolality and hyponatremia; I65.23 Occlusion and stenosis of bilateral carotid arteries; I12.9 Hypertensive chronic kidney disease with stage 1 through stage 4 chronic kidney disease, or unspecified chronic kidney disease; N18.3 Chronic kidney disease, stage 3 (moderate); J10.1 Influenza due to other identified influenza virus with other respiratory manifestations; N28.9 Disorder of kidney and ureter, unspecified; E78.5 Hyperlipidemia, unspecified; I25.119 Atherosclerotic heart disease of native coronary artery with unspecified angina pectoris; Z79.01 Long term (current) use of anticoagulants; K21.9 Gastro-esophageal reflux disease without esophagitis; K44.9 Diaphragmatic hernia without obstruction or gangrene; M85.80 Other specified disorders of bone density and structure, unspecified site; Z86.73 Personal history of transient ischemic attack (TIA), and cerebral infarction without residual deficits; K57.90 Diverticulosis of intestine, part unspecified, without perforation or abscess without bleeding; Z82.49 Family history of ischemic heart disease and other diseases of the circulatory system
CPT/HCPCS: 70450; 71010; 80048; 80053; 82550; 83735; 83880; 84100; 84443; 84484; 85025; 85610; 85730; 87804; 93005; J3480

== ENCOUNTER 2016-11-11 03:14 | Inpatient (IN) | payer MEDICARE ==
[~2016-11-11] VITALS: Ht 167.6 cm; Wt 84.0 kg
[2016-11-11] VITALS (7 sets, daily range): BP systolic 98–168; BP diastolic 56–119; PULSE 75–97; RESP 16–18; TEMP 97.4–98.4; O2SAT 93–97
[~2016-11-11 03:14] MED LIST changes: +CARV6.252 PO; +FURO40TA PO; +K DUR; +LOSA50TA PO; +METO5TAB3 PO; +ZOLP5TAB3 PO
[2016-11-11] MEDS ORDERED: SODIUM CHLORIDE 0.9% FLUSH 5 ML FLUSH IVF PRN (04:15)
[2016-11-11] MEDS ORDERED: ACETAMINOPHEN 325 MG TAB PO ONE (04:30)
[2016-11-11 04:39] LABS: AUTOMATED NEUTROPHIL # 6.2 TH/MM3 (1.8-7.7); BASOPHIL % 0.6 % (0.0-2.0); EOSINOPHIL # 0.2 TH/MM3 (0-0.4); EOSINOPHIL % 1.7 % (0.0-4.0); HEMATOCRIT 40.1 % (35.0-46.0); HEMO FLAGS DIFF FINAL; LYMPH % 16.1 % (9.0-44.0); LYMPHOCYTE # 1.4 TH/MM3 (1.0-4.8); MEAN CELL VOLUME 89.2 FL (80.0-100.0); MEAN CORPUSCULAR HEMOGLOBIN 30.1 PG (27.0-34.0); MEAN CORPUSCULAR HGB CONC 33.7 % (32.0-36.0); MONO % 9.8 % (0.0-8.0); NEUT % 71.8 % (16.0-70.0); PLATELET COUNT 220 TH/MM3 (150-450); RED BLOOD COUNT 4.49 MIL/MM3 (4.00-5.30); RED CELL DISTRIBUTION WIDTH 14.9 % (11.6-17.2); WHITE BLOOD COUNT 8.6 TH/MM3 (4.0-11.0)
[2016-11-11 04:51] LABS: APTT (PATIENT) 29.2 SEC (24.3-30.1); INTERNATIONAL NORMALIZED RATIO 1.7 RATIO; PROTHROMBIN TIME - PATIENT 19.1 SEC (9.8-11.6)
--- NOTE | 2016-11-11 04:57 | RADRPT ---
EXAM DATE/TIME: 11/11/2016 04:36 [facility] COMPARISON: CHEST SINGLE AP, November 04, 2016, 16:29. INDICATIONS : Chest pain. MEDICAL HISTORY : Congestive heart failure. Cardiovascular disease. Hypertension. SURGICAL HISTORY : None. ENCOUNTER: Initial ACUITY: 2 days PAIN SCORE: 3/10 LOCATION: chest/head. FINDINGS: Heart size enlarged. Consolidation left lung base relatively stable. No pneumothorax. No significant effusion identified. CONCLUSION: 1. Cardiomegaly with persistent left basilar consolidation similar to November 04. James Lorenzo MD on November 11, 2016 at 4:55 Board Certified Radiologist. This report was verified electronically.
--- NOTE | 2016-11-11 04:58 | RADRPT ---
EXAM DATE/TIME: 11/11/2016 04:37 [facility] COMPARISON: No previous studies available for comparison. INDICATIONS : Right shoulder pain, no known injury. MEDICAL HISTORY : None. SURGICAL HISTORY : None. ENCOUNTER: Initial ACUITY: 2 days PAIN SCORE: 5/10 LOCATION: Right arm. FINDINGS: No acute fracture or dislocation. There is some heterotopic ossification in the rotator interval, pos sibly some calcific tendinopathy. CONCLUSION: 1. No acute fracture. Possible calcific tendinopathy in the rotator interval. James Lorenzo MD on November 11, 2016 at 4:56 Board Certified Radiologist. This report was verified electronically.
[2016-11-11 05:23] LABS: ALKALINE PHOSPHATASE 88 U/L (45-117); ALT (GPT) 24 U/L (10-53); ANION GAP 10 MEQ/L (5-15); AST (GOT) 26 U/L (15-37); BICARBONATE 33.4 MEQ/L (21.0-32.0); BLOOD UREA NITROGEN 27 MG/DL (7-18); CHLORIDE 89 MEQ/L (98-107); GLOMERULAR FILTRATION RATE 31 ML/MIN (>89); SODIUM (NA) 132 MEQ/L (136-145); TOTAL BILIRUBIN ADULT 0.6 MG/DL (0.2-1.0)
[2016-11-11 05:35] LABS: CREATINE KINASE 60 U/L (26-192)
[2016-11-11 05:37] LABS: POTASSIUM 2.9 MEQ/L (3.5-5.1)
--- NOTE | 2016-11-11 06:07 | RADRPT ---
EXAM DATE/TIME: 11/11/2016 05:36 [facility] COMPARISON: CT BRAIN W/O CONTRAST, November 04, 2016, 16:18. INDICATIONS : Right arm weakness. RADIATION DOSE: 31.47 CTDIvol (mGy) MEDICAL HISTORY : Hypertension. SURGICAL HISTORY : None. ENCOUNTER: Initial ACUITY: 1 day PAIN SCALE: 0/10 LOCATION: cranial TECHNIQUE: Multiple contiguous axial images were obtained of the head. Using automated exposure control and adj ustment of the mA and/or kV according to patient size, radiation dose was kept as low as reasonably a chievable to obtain optimal diagnostic quality images. FINDINGS: CEREBRUM: The ventricles are normal for age. No evidence of midline shift, mass lesion, hemorrhage or acute in farction. No extra-axial fluid collections are seen. POSTERIOR FOSSA: The cerebellum and brainstem are intact. The 4th ventricle is midline. The cerebellopontine angle i s unremarkable. EXTRACRANIAL: The visualized portion of the orbits is intact. SKULL: The calvaria is intact. No evidence of skull fracture. CONCLUSION: 1. No acute findings. Cortical volume loss. James Lorenzo MD on November 11, 2016 at 6:04 Board Certified Radiologist. This report was verified electronically.
--- NOTE | 2016-11-11 06:12 | PD ---
HPI Chief Complaint: Neuro Symptoms/ Deficits Time Seen by Provider: 03:51 Travel History International Travel<30 days: No Contact w/Intl Traveler<30days: No Traveled to known affect area: No History of Present Illness HPI Patient is an 86-year-old female with history of CHF, nonischemic cardiomyopathy , atrial fibrillation on warfarin, hypertension, hyperlipidemia, coronary disease, stage III chronic kidney disease, TIAs in February 2011, mitral regurg, aortic valve stenosis, presents to emergency room with her daughter for evaluation of not feeling well. Patient reports that she has been having increased right sided shoulder pain for the past 2 days. Patient reports that pain has been constant, denies history of fall or trauma to her right shoulder. Reports that she woke up from sleep as her shoulder was hurting her and was getting ready to come to the emergency room for evaluation when she began to have a headache. Patient reports that her head is been hurting her for the past hour and a half, reports that she has also been having neck pain. Reports that she intermittently does have some neck pain which usually resolve on its own. As for her headache, denies that this is the worst headache of her life. Reports no fall today, no trauma to the head or neck. Patient's daughter reports that as she was getting her ready to bring her to the emergency room, patient appeared to be ataxic and appeared to be falling more to her left side. Reports that she was unable to walk in a straight line. Reports that prior to coming to the emergency room, she had one episode of emesis. PFSH Past Medical History Hx Anticoagulant Therapy: Yes Arthritis: No Asthma: No Atrial Fibrillation: Yes Blood Disorders: No Heart Rhythm Problems: Yes (AFIB) Cancer: No Cardiac Catheterization: Yes Cardiovascular Problems: Yes (CHF , hypertension) High Cholesterol: Yes Chest Pain: Yes Congestive Heart Failure: Yes COPD: No Coronary Artery Disease: Yes Diabetes: No Diminished Hearing: No Endocrine: No Glaucoma: No Genitourinary: Yes Hepatitis: No Hiatal Hernia: No Hypertension: Yes Immune Disorder: No Musculoskeletal: Yes Neurologic: Yes Psychiatric: No Reproductive: No Respiratory: Yes Immunizations Current: Yes Myocardial Infarction: No Sleep Apnea: No Thyroid Disease: No Menopausal: Yes Past Surgical History Abdominal Surgery: No AICD: No Arteriovenous Shunt: No Cardiac Surgery: Yes (CARDIAC CATH) Ear Surgery: No Endocrine Surgery: No Eye Surgery: Yes (CATARACT SX LEFT EYE) Genitourinary Surgery: No Gynecologic Surgery: No Insulin Pump: No Joint Replacement: No Oral Surgery: No Pacemaker: No Thoracic Surgery: No Other Surgery: Yes (SURGERY R. ANKLE) Social History Alcohol Use: Yes (WINE X WEEK) Tobacco Use: No Substance Use: No Allergies-Medications (Allergen,Severity, Reaction): Coded Allergies: Codeine (Verified Allergy, Severe, RASH AND VOMITING, 11/11/16) Reported Meds & Prescriptions Reported Meds & Active Scripts Active Furosemide 40 Mg Tab 40 Mg PO BID 30 Days If weight gain greater than 5 pounds in 48hours, then take extra lasix 40mg and call Cardiology, Dr. Chung Nebulizer 1 Mis Mis 1 Ea .ROUTE DIRECTED Nebulizer Kit/Tubing/Mout (N/A) 1 Kit Kit 1 Kit FM DIRECTED Reported Losartan (Losartan Potassium) 50 Mg Tab 50 Mg PO DAILY [K Dur] 10 Meq BID Carvedilol 6.25 Mg Tab 6.25 Mg PO BID Zolpidem (Zolpidem Tartrate) 5 Mg Tab 5 Mg PO HS PRN Warfarin 3 Mg Tab 1.5 Mg PO THURS Warfarin 3 Mg Tab 3 Mg PO MONTUEWEDFRISATSUN Lovastatin 40 Mg Tab 40 Mg PO DAILY Lorazepam 0.5 Mg Tab 0.5 Mg PO DAILY PRN Vitamin D3 (Cholecalciferol) 1,000 Unit Tab 1,000 Units PO DAILY Review of Systems General / Constitutional: No: Fever Eyes: No: Visual changes HENT: No: Headaches Cardiovascular: No: Chest Pain or Discomfort Respiratory: No: Shortness of Breath Gastrointestinal: Positive: Nausea, Vomiting, No: Abdominal Pain Genitourinary: No: Dysuria Musculoskeletal: No: Pain Skin: No Rash Neurologic: Positive: Ataxia, Headache, No: Weakness, Tremor Psychiatric: No: Depression Endocrine: No: Polydipsia Hematologic/Lymphatic: No: Easy Bruising Physical Exam Narrative GENERAL: mild distress SKIN: Warm and dry. HEAD: Atraumatic. Normocephalic. EYES: Pupils equal and round. No scleral icterus. No injection or drainage. ENT: No nasal bleeding or discharge. Mucous membranes pink and moist. NECK: Trachea midline. No JVD. CARDIOVASCULAR: iregular rate and rhythm. 4/5 systolic murmur RESPIRATORY: No accessory muscle use. Clear to auscultation. Breath sounds equal bilaterally. GASTROINTESTINAL: Abdomen soft, non-tender, nondistended. Hepatic and splenic margins not palpable. MUSCULOSKELETAL: No obvious deformities. No clubbing. No cyanosis. No edema. NEUROLOGICAL: Awake and alert. No obvious cranial nerve deficits. Motor grossly within normal limits. Normal speech. PSYCHIATRIC: Appropriate mood and affect; insight and judgment normal. Data Data Last Documented VS Vital Signs Date Time Temp Pulse Resp B/P Pulse Ox O2 Delivery O2 Flow Rate FiO2 11/11/16 03:33 15 97 Room Air 11/11/16 03:21 98.4 82 168/119 Orders Electrocardiogram (11/11/16 04:14) Prothrombin Time / Inr (Pt) (11/11/16 04:14) Act Partial Throm Time (Ptt) (11/11/16 04:14) Complete Blood Count With Diff (11/11/16 04:14) Comprehensive Metabolic Panel (11/11/16 04:14) Creatine Kinase (Cpk) (11/11/16 04:14) Urinalysis - C+S If Indicated (11/11/16 04:14) Ct Brain W/O Iv Contrast(Rout) (11/11/16 04:14) Chest, Single Ap (11/11/16 04:14) Ecg Monitoring (11/11/16 04:14) Iv Access Insert/Monitor (11/11/16 04:14) Oximetry (11/11/16 04:14) Sodium Chloride 0.9% Flush (Ns Flush) (11/11/16 04:15) Ct Cerv Spine W/O Contrast (11/11/16 ) Shoulder, Complete (>2vws) (11/11/16 ) Acetaminophen (Tylenol) (11/11/16 04:30) Potassium Chlor 20 Meq Premix (Kcl 20 Me (11/11/16 06:00) ^ Straight Catheter (11/11/16 06:12) Labs Laboratory Tests Test 11/11/16 04:30 White Blood Count 8.6 TH/MM3 Red Blood Count 4.49 MIL/MM3 Hemoglobin 13.5 GM/DL Hematocrit 40.1 % Mean Corpuscular Volume 89.2 FL Mean Corpuscular Hemoglobin 30.1 PG Mean Corpuscular Hemoglobin 33.7 % Concent Red Cell Distribution Width 14.9 % Platelet Count 220 TH/MM3 Mean Platelet Volume 7.9 FL Neutrophils (%) (Auto) 71.8 % Lymphocytes (%) (Auto) 16.1 % Monocytes (%) (Auto) 9.8 % Eosinophils (%) (Auto) 1.7 % Basophils (%) (Auto) 0.6 % Neutrophils # (Auto) 6.2 TH/MM3 Lymphocytes # (Auto) 1.4 TH/MM3 Monocytes # (Auto) 0.8 TH/MM3 Eosinophils # (Auto) 0.2 TH/MM3 Basophils # (Auto) 0.0 TH/MM3 CBC Comment DIFF FINAL Differential Comment Prothrombin Time 19.1 SEC Prothromb Time International 1.7 RATIO Ratio Activated Partial 29.2 SEC Thromboplast Time Sodium Level 132 MEQ/L Potassium Level 2.9 MEQ/L Chloride Level 89 MEQ/L Carbon Dioxide Level 33.4 MEQ/L Anion Gap 10 MEQ/L Blood Urea Nitrogen 27 MG/DL Creatinine 1.59 MG/DL Estimat Glomerular Filtration 31 ML/MIN Rate Random Glucose 114 MG/DL Calcium Level 8.9 MG/DL Total Bilirubin 0.6 MG/DL Aspartate Amino Transf 26 U/L (AST/SGOT) Alanine Aminotransferase 24 U/L (ALT/SGPT) Alkaline Phosphatase 88 U/L Total Creatine Kinase 60 U/L Total Protein 7.6 GM/DL Albumin 3.6 GM/DL [facility] Medical Decision Making Medical Screen Exam Complete: Yes Emergency Medical Condition: Yes Interpretation(s) EKG at 0503: A. fib at 91 beats minute, QT/QTc 409/458, nonspecific ST-T wave changes Vital Signs Date Time Temp Pulse Resp B/P Pulse Ox O2 Delivery O2 Flow Rate FiO2 11/11/16 03:33 15 97 Room Air 11/11/16 03:21 98.4 82 16 168/119 96 Room Air Differential Diagnosis CVA, TIA, intracranial hemorrhage, dehydration, ACS Narrative Course Patient is an 86-year-old female who presents to emergency room with multiple complaints. Reports that she has been having increased pains her right shoulder for the past 2 days, no evidence of trauma to her shoulder. Reports that she was getting ready to come to the emergency room for evaluation of her shoulder pain when she began to have a headache. Patient reports that she vomited once prior to coming to the emergency room with her symptoms. Also reports concern as patient has been ataxic and when she ambulates, falls to her left side. EKG ordered, patient was placed on a quality assurance monitor chassis upon presentation to the emergency room. Labs as well as CAT scan of head ordered to evaluate for age intracranial hemorrhage. X-rays of the shoulder ordered for evaluation of possible fracture. CBC & BMP Diagram 11/11/16 04:30 Last Impressions Chest X-Ray 11/11/16413 Signed Impressions: Service Date/Time: Friday, November 11, 2016 04:36 - CONCLUSION: 1. Cardiomegaly with persistent left basilar consolidation similar to November 04. James Lorenzo MD Shoulder X-Ray 11/11/16 0000 Signed Impressions: Service Date/Time: Friday, November 11, 2016 04:37 - CONCLUSION: 1. No acute fracture. Possible calcific tendinopathy in the rotator interval. James Lorenzo MD Patient does have possible calcific tendinopathy to the right shoulder which could eventually be causing her to have extreme pain. BUN and creatinine is 27/1.59, patients baseline cr 1.14 - patient appears dehydrated K 2.9 - iv potassium ordered for repletion INR 1.7 - patient is subtherapeutic Last Impressions Head CT 11/11/16413 Signed Impressions: Service Date/Time: Friday, November 11, 2016 05:36 - CONCLUSION: 1. No acute findings. Cortical volume loss. James Lorenzo MD Chest X-Ray 11/11/16413 Signed Impressions: Service Date/Time: Friday, November 11, 2016 04:36 - CONCLUSION: 1. Cardiomegaly with persistent left basilar consolidation similar to November 04. James Lorenzo MD Shoulder X-Ray 11/11/16 0000 Signed Impressions: Service Date/Time: Friday, November 11, 2016 04:37 - CONCLUSION: 1. No acute fracture. Possible calcific tendinopathy in the rotator interval. James Lorenzo MD case reviewed with dr schwarz who accepts pt to service Diagnosis Primary Impression: Ataxia Additional Impressions: Tendinopathy Hypokalemia Renal insufficiency Admitting Information Admitting Physician Requests: Alberta Briscoe DO Nov 11, 2016 06:12
[2016-11-11] MEDS: POTASSIUM CHLOR 20 MEQ PREMIX 100 ML IV SCH ×2 (06:37→08:39)
--- NOTE | 2016-11-11 06:38 | RADRPT ---
EXAM DATE/TIME: 11/11/2016 05:36 [facility] COMPARISON: No previous studies available for comparison. INDICATIONS : Right arm weakness. RADIATION DOSE: 17.63 CTDIvol (mGy) MEDICAL HISTORY : None SURGICAL HISTORY : None. ENCOUNTER: Initial ACUITY: 1 day PAIN SCALE: 0/10 LOCATION: neck TECHNIQUE: Volumetric scanning of the cervical spine was performed. Multiplanar reconstructions in the sagittal, coronal and oblique axial planes were performed. Using automated exposure control and adjustment o f the mA and/or kV according to patient size, radiation dose was kept as low as reasonably achievable to obtain optimal diagnostic quality images. FINDINGS: There is no acute fracture. There is a mild degenerative anterolisthesis of C3 on C4. No significant central bony canal stenosis. Moderate degenerative disc disease in the lower cervical spine. Moderate facet arthropathy. CONCLUSION: 1. No acute findings. Grade 1 anterolisthesis of C3 on C4. Moderate to severe degenerative disc disea se in lower cervical spine. James Lorenzo MD on November 11, 2016 at 6:32 Board Certified Radiologist. This report was verified electronically.
[2016-11-11] MEDS ORDERED: ZOLPIDEM TARTRATE 5 MG TAB PO PRN (08:30)
[2016-11-11] MEDS ORDERED: LORazepam 0.5 MG TAB PO PRN (08:30)
--- NOTE | 2016-11-11 08:58 | HHI.HP ---
HPI Service [facility] Hospitalists Primary Care Physician Jim Dave MD Admission Diagnosis ataxia, gait instability, dehydration Travel History International Travel<30 Days: No Contact w/Intl Traveler <30 Da: No Traveled to Known Affected Are: No History of Present Illness Ms. Keane is an 86 y/o female with CHF, nonischemic cardiomyopathy, atrial fibrillation on chronic anticoagulation with Coumadin, hypertension, hyperlipidemia, stage III CKD, Hx of TIAs in February 2011, and aortic valve stenosis, who presented to the ED at [facility] on 11/10/16 with her daughter for evaluation increased right sided shoulder pain for the past 2 days and difficulty ambulating. Patient reports that the right shoulder pain has been constant, denies history of fall or trauma to her right shoulder. Reports that she woke up from sleep and her shoulder was hurting. Patient's daughter reported to the ED physician that as she was getting the pt ready to bring her to the emergency room, patient appeared to be ataxic and appeared to be falling more to her left side. Reports that she was unable to walk in a straight line. Reports that prior to coming to the emergency room, she had one episode of emesis. Pt had recently been admitted from 11/04/16-11/07/16 with c/o weakness and dizziness upon standing and was found to have severe dehydration, hyponatremia, hypokalemia, and mild acute on chronic kidney disease. Her Zaroxolyn was stopped at that time. Her Lasix was resumed at discharge at 40mg po BID. Labs at admission noted potassium 2.9 and renal function was slightly worse at Cr 1.59/BUN 27, GFR 31. Her labs at the time of her recent discharge on 11/07 noted Cr 1.18/BUN 22, GFR 43. CXR at admission noted cardiomegaly with persistent left basilar consolidation similar to 11/04/16. Review of Systems Constitutional: DENIES: Fever, Chills Ears, nose, mouth, throat: DENIES: Vertigo Respiratory: DENIES: Cough, Shortness of breath Cardiovascular: DENIES: Chest pain, Palpitations Gastrointestinal: DENIES: Abdominal pain, Diarrhea, Nausea, Vomiting Musculoskeletal: COMPLAINS OF: Joint pain Integumentary: DENIES: Rash Neurologic: DENIES: Headache Psychiatric: DENIES: Confusion Past Family Social History Past Medical History Nonischemic cardiomyopathy, 2D echo 06/12 noted EF 45%, previously was 35-40% in 2015 Systolic CHF Chronic atrial fibrillation on chronic warfarin therapy Hypertension Hyperlipidemia Coronary artery disease/angina pectoris Stage 3 CKD/Hypertensive CKD, GERD/Hiatal hernia Mild carotid artery disease, carotid ultrasound on 11-12-12 showed mild bilateral plaque of <35%. Osteopenia Hx of TIA in February 2011. Mitral regurgitation Aortic valve stenosis Diverticulosis Vitamin D insufficiency Past Surgical History Cardiac cath on 11-01-07 --> noncritical coronary artery disease with a 40% ostial stenosis of the LAD on Cataract surgery Reported Medications Furosemide 40 Mg Tab 40 Mg PO BID 30 Days If weight gain greater than 5 pounds in 48hours, then take extra lasix 40mg and call Cardiology, Dr. Chung Losartan (Losartan Potassium) 50 Mg Tab 50 Mg PO DAILY [K Dur] 10 Meq BID Carvedilol 6.25 Mg Tab 6.25 Mg PO BID Zolpidem (Zolpidem Tartrate) 5 Mg Tab 5 Mg PO HS PRN Warfarin 3 Mg Tab 1.5 Mg PO THURS Warfarin 3 Mg Tab 3 Mg PO MONTUEWEDFRISATSUN Lovastatin 40 Mg Tab 40 Mg PO DAILY Lorazepam 0.5 Mg Tab 0.5 Mg PO DAILY PRN Vitamin D3 (Cholecalciferol) 1,000 Unit Tab 1,000 Units PO DAILY Allergies: Coded Allergies: Codeine (Verified Allergy, Severe, RASH AND VOMITING, 11/11/16) Family History Brother with hx of CAD/CABG Brother with hx of lung cancer Mother with hx of CAD Social History Denies any tobacco use Occasional alcohol use, glass of wine 1-2 times per week Pt lives alone, she is 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 Physical Exam Vital Signs Vital Signs Date Time Temp Pulse Resp B/P Pulse Ox O2 Delivery O2 Flow Rate FiO2 11/11/16 08:07 90 18 106/56 96 Room Air 11/11/16 03:33 15 97 Room Air 11/11/16 03:21 98.4 82 16 168/119 96 Room Air Physical Exam GENERAL: This is a well-nourished, well-developed patient, in no apparent distress. HEENT: Atraumatic. Normocephalic. No temporal or scalp tenderness. No scleral icterus. Airway patent. NECK: Trachea midline, supple, nontender. CARDIO: Regular. RESP: CTA bilaterally. No wheezes, rales, or rhonchi. ABD: +BS, soft, non-tender, nondistended. EXT: Extremities without clubbing, cyanosis, or edema. NEURO: Awake and alert. Motor and sensory grossly within normal limits. Normal speech. Laboratory Laboratory Tests Test 11/11/16 04:30 White Blood Count 8.6 Red Blood Count 4.49 Hemoglobin 13.5 Hematocrit 40.1 Mean Corpuscular Volume 89.2 Mean Corpuscular Hemoglobin 30.1 Mean Corpuscular Hemoglobin 33.7 Concent Red Cell Distribution Width 14.9 Platelet Count 220 Mean Platelet Volume 7.9 Neutrophils (%) (Auto) 71.8 Lymphocytes (%) (Auto) 16.1 Monocytes (%) (Auto) 9.8 Eosinophils (%) (Auto) 1.7 Basophils (%) (Auto) 0.6 Neutrophils # (Auto) 6.2 Lymphocytes # (Auto) 1.4 Monocytes # (Auto) 0.8 Eosinophils # (Auto) 0.2 Basophils # (Auto) 0.0 CBC Comment DIFF FINAL Differential Comment Prothrombin Time 19.1 Prothromb Time International 1.7 Ratio Activated Partial 29.2 Thromboplast Time Sodium Level 132 Potassium Level 2.9 Chloride Level 89 Carbon Dioxide Level 33.4 Anion Gap 10 Blood Urea Nitrogen 27 Creatinine 1.59 Estimat Glomerular Filtration 31 Rate Random Glucose 114 Calcium Level 8.9 Total Bilirubin 0.6 Aspartate Amino Transf 26 (AST/SGOT) Alanine Aminotransferase 24 (ALT/SGPT) Alkaline Phosphatase 88 Total Creatine Kinase 60 Total Protein 7.6 Albumin 3.6 Result Diagram: 11/11/1642911/11/16429 Imaging Last Impressions Head CT 11/11/16413 Signed Impressions: Service Date/Time: Friday, November 11, 2016 05:36 - CONCLUSION: 1. No acute findings. Cortical volume loss. James Lorenzo MD Chest X-Ray 11/11/164 Signed Impressions: Service Date/Time: Friday, November 11, 2016 04:36 - CONCLUSION: 1. Cardiomegaly with persistent left basilar consolidation similar to November 04. James Lorenzo MD Shoulder X-Ray 11/11/16 0000 Signed Impressions: Service Date/Time: Friday, November 11, 2016 04:37 - CONCLUSION: 1. No acute fracture. Possible calcific tendinopathy in the rotator interval. James Lorenzo MD Cervical Spine CT 11/11/16 0000 Signed Impressions: Service Date/Time: Friday, November 11, 2016 05:36 - CONCLUSION: 1. No acute findings. Grade 1 anterolisthesis of C3 on C4. Moderate to severe degenerative disc disease in lower cervical spine. James Lorenzo MD Septic Shock Reassessment Heart: Regular rate and rhythm Lungs: Clear Skin: Warm Assessment and Plan Problem List: (1) Dehydration Status: Acute Plan: - Pt was discharge to home on lasix 40mg BID, likely will need to discharge on lower dose - hold diuretic for now - IVFs - repeat BMP in AM (2) Ataxia Status: Acute Plan: - likely d/t dehydration - IVF - PT (3) CKD (chronic kidney disease) stage 3, GFR 30-59 ml/min Status: Chronic Plan: - see above (4) Systolic CHF Status: Chronic Plan: - once pt is stabilized, will start on lasix 20mg BID and observe clinical response (5) Chronic atrial fibrillation Status: Chronic Plan: - coumadin Assessment and Plan Patient examined. Assessment and plan formulated with Alberta Valenzuela PA-C. I agree with the above. Problem Qualifiers (1) Systolic CHF: Qualified Code: I50.22 - Chronic systolic congestive heart failure Alberta Valenzuela Nov 11, 2016 08:58 Tito Villalpando DO Nov 11, 2016 16:05
[2016-11-11] MEDS ORDERED: NS + KCL 20 MEQ INJ 1,000 ML IV SCH (09:00)
[2016-11-11] MEDS ORDERED: ONDANSETRON HCL 4 MG/2 ML VIAL IV PRN (09:00)
[2016-11-11] MEDS: PRAVASTATIN SOD 40 MG TAB PO SCH (10:03)
--- NOTE | 2016-11-11 15:46 | EKG ---
Date Performed: 11/11/2016 Time Performed: 05:03:55 PTAGE: 86 years EKG: ATRIAL FIBRILLATION NONSPECIFIC ST & T-WAVE ABNORMALITY ABNORMAL RHYTHM ECG PREVIOUS TRACING : 11/04/2016 17.07 Compared to prior tracing no significant change DOCTOR: Ophelia Roger Interpretating Date/Time 11/11/2016 15:45:18
[2016-11-11] MEDS: WARFARIN SOD 3 MG TAB PO SCH (15:57)
[2016-11-11 17:08] LABS: POTASSIUM 3.4 MEQ/L (3.5-5.1)
[2016-11-11] MEDS: ACETAMINOPHEN 325 MG TAB PO PRN (20:27)
[2016-11-12] VITALS (7 sets, daily range): BP systolic 121–148; BP diastolic 66–82; PULSE 75–88; RESP 18–22; TEMP 98.1–98.5; O2SAT 93–98
[2016-11-12 08:08] LABS: AUTOMATED NEUTROPHIL # 3.3 TH/MM3 (1.8-7.7); BASOPHIL # 0.1 TH/MM3 (0-0.2); EOSINOPHIL # 0.1 TH/MM3 (0-0.4); EOSINOPHIL % 2.4 % (0.0-4.0); HEMATOCRIT 35.6 % (35.0-46.0); HEMO FLAGS DIFF FINAL; LYMPH % 25.7 % (9.0-44.0); LYMPHOCYTE # 1.4 TH/MM3 (1.0-4.8); MEAN CELL VOLUME 89.5 FL (80.0-100.0); MEAN CORPUSCULAR HEMOGLOBIN 29.9 PG (27.0-34.0); MEAN CORPUSCULAR HGB CONC 33.4 % (32.0-36.0); MONO % 11.2 % (0.0-8.0); NEUT % 59.7 % (16.0-70.0); PLATELET COUNT 214 TH/MM3 (150-450); RED BLOOD COUNT 3.98 MIL/MM3 (4.00-5.30); RED CELL DISTRIBUTION WIDTH 14.4 % (11.6-17.2); WHITE BLOOD COUNT 5.5 TH/MM3 (4.0-11.0)
[2016-11-12 08:10] LABS: PROTHROMBIN TIME - PATIENT 22.4 SEC (9.8-11.6)
[2016-11-12] MEDS: PRAVASTATIN SOD 40 MG TAB PO SCH (08:25)
[2016-11-12 08:26] LABS: BICARBONATE 30.6 MEQ/L (21.0-32.0); MAGNESIUM 1.9 MG/DL (1.5-2.5); POTASSIUM 3.1 MEQ/L (3.5-5.1)
[2016-11-12] MEDS ORDERED: POTASSIUM CHLORIDE 20 MEQ CONTROLLED RELEASE TAB PO ONE (15:00)
--- NOTE | 2016-11-12 15:00 | HHI.PR ---
Subjective Remarks Pt feels better today. Pt ambulating to the bedside commode. Objective Vitals Vital Signs Date Time Temp Pulse Resp B/P Pulse Ox O2 Delivery O2 Flow Rate FiO2 11/12/16 08:10 75 11/12/16 08:00 98.1 85 22 148/67 94 11/12/16 04:00 98.2 84 18 130/66 96 11/12/16 00:05 98.4 80 18 134/68 96 11/11/16 20:16 93 11/11/16 20:06 98.1 90 18 116/58 93 11/11/16 16:00 97.8 97 18 98/63 96 11/11/16 11/11/16 11/12/16 15:00 23:00 07:00 Intake Total 688 ml 1009 ml 204 ml Balance 688 ml 1009 ml 204 ml Intake Oral 240 ml 360 ml 0 ml IV Total 448 ml 649 ml 204 ml # Voids 1 3 2 # Bowel Movements 0 1 0 Result Diagram: 11/12/16 0746 11/12/1646 Imaging Last Impressions Head CT 11/11/16413 Signed Impressions: Service Date/Time: Friday, November 11, 2016 05:36 - CONCLUSION: 1. No acute findings. Cortical volume loss. James Lorenzo MD Chest X-Ray 11/11/164 Signed Impressions: Service Date/Time: Friday, November 11, 2016 04:36 - CONCLUSION: 1. Cardiomegaly with persistent left basilar consolidation similar to November 04. James Lorenzo MD Shoulder X-Ray 11/11/16 0000 Signed Impressions: Service Date/Time: Friday, November 11, 2016 04:37 - CONCLUSION: 1. No acute fracture. Possible calcific tendinopathy in the rotator interval. James Lorenzo MD Cervical Spine CT 11/11/16 0000 Signed Impressions: Service Date/Time: Friday, November 11, 2016 05:36 - CONCLUSION: 1. No acute findings. Grade 1 anterolisthesis of C3 on C4. Moderate to severe degenerative disc disease in lower cervical spine. James Lorenzo MD Objective Remarks GENERAL: This is a well-nourished, well-developed patient, in no apparent distress. CARDIOVASCULAR: Regular rate and rhythm without murmurs, gallops, or rubs. RESPIRATORY: Clear to auscultation. Breath sounds equal bilaterally. No wheezes , rales, or rhonchi. GASTROINTESTINAL: Abdomen soft, non-tender, nondistended. Normal active bowel sounds MUSCULOSKELETAL: Extremities without clubbing, cyanosis, or edema. NEURO: Alert & Oriented x4 to person, place, time, situation. Moves all ext x4 A/P Problem List: (1) Dehydration Status: Acute Plan: - improved - Pt was discharge to home on lasix 40mg BID, likely will need to discharge on lower dose - pt received 2L IVFs with improvement of renal functions - will resume her lasix at 40mg daily & observe clinical response - repeat BMP/Mag in AM - anticipate discharge to home 11/14 (2) Ataxia Status: Acute Plan: - likely d/t dehydration - PT (3) CKD (chronic kidney disease) stage 3, GFR 30-59 ml/min Status: Chronic Plan: - see above (4) Systolic CHF Status: Chronic Plan: - see above (5) Chronic atrial fibrillation Status: Chronic Plan: - coumadin Problem Qualifiers (1) Systolic CHF: Qualified Code: I50.22 - Chronic systolic congestive heart failure Tito Villalpando DO Nov 12, 2016 15:00
[2016-11-12] MEDS: WARFARIN SOD 3 MG TAB PO SCH (15:54)
[2016-11-12] MEDS: ACETAMINOPHEN 325 MG TAB PO PRN (21:50)
[2016-11-13] VITALS (8 sets, daily range): BP systolic 127–155; BP diastolic 81–87; PULSE 74–104; RESP 16–18; TEMP 97.3–98.4; O2SAT 93–99
[2016-11-13 08:04] LABS: BICARBONATE 28.6 MEQ/L (21.0-32.0); MAGNESIUM 1.9 MG/DL (1.5-2.5); POTASSIUM 3.5 MEQ/L (3.5-5.1)
[2016-11-13] MEDS: PRAVASTATIN SOD 40 MG TAB PO SCH (08:18)
[2016-11-13] MEDS: POTASSIUM CHLORIDE 20 MEQ CONTROLLED RELEASE TAB PO SCH (08:19)
[2016-11-13] MEDS: FUROSEMIDE 40 MG TAB PO SCH (08:19)
--- NOTE | 2016-11-13 16:07 | HHI.PR ---
Subjective Remarks No new complaints. Objective Vitals Vital Signs Date Time Temp Pulse Resp B/P Pulse Ox O2 Delivery O2 Flow Rate FiO2 11/13/16 16:00 98.4 92 16 142/87 99 11/13/16 12:00 98.4 85 16 127/84 96 11/13/16 08:00 97.5 98 18 143/85 94 11/13/16 04:00 98.3 74 18 155/87 93 11/13/16 02:21 104 11/13/16 00:00 97.3 91 18 149/81 96 11/12/16 22:48 16 11/12/16 20:00 98.5 84 18 142/79 93 11/12/16 11/12/16 11/13/16 15:00 23:00 07:00 Intake Total 720 ml 360 ml 100 ml Output Total 550 ml 150 ml Balance 170 ml 360 ml -50 ml Intake Oral 720 ml 360 ml 100 ml Output Urine Total 550 ml 150 ml # Voids 2 # Bowel Movements 1 0 0 Result Diagram: 11/12/16 0746 11/13/16 0649 Imaging Last Impressions Head CT 11/11/16413 Signed Impressions: Service Date/Time: Friday, November 11, 2016 05:36 - CONCLUSION: 1. No acute findings. Cortical volume loss. James Lorenzo MD Chest X-Ray 11/11/164 Signed Impressions: Service Date/Time: Friday, November 11, 2016 04:36 - CONCLUSION: 1. Cardiomegaly with persistent left basilar consolidation similar to November 04. James Lorenzo MD Shoulder X-Ray 11/11/16 0000 Signed Impressions: Service Date/Time: Friday, November 11, 2016 04:37 - CONCLUSION: 1. No acute fracture. Possible calcific tendinopathy in the rotator interval. James Lorenzo MD Cervical Spine CT 11/11/16 0000 Signed Impressions: Service Date/Time: Friday, November 11, 2016 05:36 - CONCLUSION: 1. No acute findings. Grade 1 anterolisthesis of C3 on C4. Moderate to severe degenerative disc disease in lower cervical spine. James Lorenzo MD Objective Remarks GENERAL: This is a well-nourished, well-developed patient, in no apparent distress. CARDIOVASCULAR: Regular rate and rhythm without murmurs, gallops, or rubs. RESPIRATORY: Clear to auscultation. Breath sounds equal bilaterally. No wheezes , rales, or rhonchi. GASTROINTESTINAL: Abdomen soft, non-tender, nondistended. Normal active bowel sounds MUSCULOSKELETAL: Extremities without clubbing, cyanosis, or edema. NEURO: Alert & Oriented x4 to person, place, time, situation. Moves all ext x4 A/P Problem List: (1) Dehydration Status: Acute Plan: - resolved - Pt was discharge to home on lasix 40mg BID, likely will need to discharge on lower dose - pt received 2L IVFs with improvement of renal functions - will resume her lasix at 40mg daily & observe clinical response - repeat BMP in AM - discharge to home in AM, 11/14/16 (2) Ataxia Status: Acute Plan: - likely d/t dehydration - PT (3) CKD (chronic kidney disease) stage 3, GFR 30-59 ml/min Status: Chronic Plan: - see above (4) Systolic CHF Status: Chronic Plan: - see above (5) Chronic atrial fibrillation Status: Chronic Plan: - coumadin Problem Qualifiers (1) Systolic CHF: Qualified Code: I50.22 - Chronic systolic congestive heart failure Tito Villalpando DO Nov 13, 2016 16:06
[2016-11-13] MEDS ORDERED: FURO40TA PO (16:14)
[2016-11-13] MEDS ORDERED: LOSA50TA PO (16:14)
[2016-11-13] MEDS ORDERED: K DUR (16:14)
--- NOTE | 2016-11-13 16:17 | HHI.DS ---
Discharge Summary Admission Date Nov 12, 2016 at 15:06 Discharge Date: Nov 14, 2016 Admitting Diagnosis ataxia, gait instability, dehydration (1) Dehydration Diagnosis: Principal (2) Ataxia Diagnosis: Principal (3) CKD (chronic kidney disease) stage 3, GFR 30-59 ml/min Diagnosis: Principal (4) Systolic CHF Diagnosis: Secondary (5) Chronic atrial fibrillation Diagnosis: Secondary Brief History Ms. Keane is an 86 y/o female with CHF, nonischemic cardiomyopathy, atrial fibrillation on chronic anticoagulation with Coumadin, hypertension, hyperlipidemia, stage III CKD, Hx of TIAs in February 2011, and aortic valve stenosis, who presented to the ED at [facility] on 11/10/16 with her daughter for evaluation increased right sided shoulder pain for the past 2 days and difficulty ambulating. Patient reports that the right shoulder pain has been constant, denies history of fall or trauma to her right shoulder. Reports that she woke up from sleep and her shoulder was hurting. Patient's daughter reported to the ED physician that as she was getting the pt ready to bring her to the emergency room, patient appeared to be ataxic and appeared to be falling more to her left side. Reports that she was unable to walk in a straight line. Reports that prior to coming to the emergency room, she had one episode of emesis. Pt had recently been admitted from 11/04/16-11/07/16 with c/o weakness and dizziness upon standing and was found to have severe dehydration, hyponatremia, hypokalemia, and mild acute on chronic kidney disease. Her Zaroxolyn was stopped at that time. Her Lasix was resumed at discharge at 40mg po BID. Labs at admission noted potassium 2.9 and renal function was slightly worse at Cr 1.59/BUN 27, GFR 31. Her labs at the time of her recent discharge on 11/07 noted Cr 1.18/BUN 22, GFR 43. CXR at admission noted cardiomegaly with persistent left basilar consolidation similar to 11/04/16. CBC/BMP: 11/12/16 0746 11/13/16 0649 Significant Findings Laboratory Tests Test 11/11/16 11/11/16 11/12/16 11/13/16 04:30 16:22 07:46 06:49 Prothrombin Time 19.1 SEC 22.4 SEC (9.8-11.6) (9.8-11.6) Sodium Level 132 MEQ/L 132 MEQ/L 135 MEQ/L (136-145) (136-145) (136-145) Potassium Level 2.9 MEQ/L 3.4 MEQ/L 3.1 MEQ/L (3.5-5.1) (3.5-5.1) (3.5-5.1) Chloride Level 89 MEQ/L 91 MEQ/L 97 MEQ/L (98-107) (98-107) (98-107) Carbon Dioxide Level 33.4 MEQ/L (21.0-32.0) Blood Urea Nitrogen 27 MG/DL (7-18) 32 MG/DL (7-18) 25 MG/DL (7-18) Creatinine 1.59 MG/DL 1.61 MG/DL 1.25 MG/DL 1.02 MG/DL (0.50-1.00) (0.50-1.00) (0.50-1.00) (0.50-1.00) Estimat Glomerular Filtration 31 ML/MIN (>89) 30 ML/MIN (>89) 41 ML/MIN (>89) 51 ML/MIN (>89) Rate Random Glucose 114 MG/DL 108 MG/DL (74-106) (74-106) Neutrophils (%) (Auto) 71.8 % (16.0-70.0) Monocytes (%) (Auto) 9.8 % (0.0-8.0) 11.2 % (0.0-8.0) Red Blood Count 3.98 MIL/MM3 (4.00-5.30) PE at Discharge GENERAL: This is a well-nourished, well-developed patient, in no apparent distress. CARDIOVASCULAR: Regular rate and rhythm without murmurs, gallops, or rubs. RESPIRATORY: Clear to auscultation. Breath sounds equal bilaterally. No wheezes , rales, or rhonchi. GASTROINTESTINAL: Abdomen soft, non-tender, nondistended. Normal active bowel sounds MUSCULOSKELETAL: Extremities without clubbing, cyanosis, or edema. NEURO: Alert & Oriented x4 to person, place, time, situation. Moves all ext x4 Hospital Course (1) Dehydration Status: Acute Plan: - resolved - Pt was previously discharged to home on lasix 40mg BID, will need to discharge on lower dose - pt received 2L IVFs with improvement of renal functions - will resume her lasix at 40mg daily & observe clinical response - repeat BMP in AM - discharge to home in AM, 11/14/16 - see discharge orders - f/u with PCP, Dr. Jim Dave, in 1 week - f/u with Cardiology, Dr. Nestor Chung, in 1 week. (2) Ataxia Status: Acute Plan: - likely d/t dehydration - PT (3) CKD (chronic kidney disease) stage 3, GFR 30-59 ml/min Status: Chronic Plan: - see above (4) Systolic CHF Status: Chronic Plan: - see above (5) Chronic atrial fibrillation Status: Chronic Plan: - coumadin Pt Condition on Discharge: Stable Discharge Disposition: Disch w/ Home Health Serv Discharge Instructions DIET: Follow Instructions for: Heart Healthy Diet Activities you can perform: Regular-No Restrictions Follow up Referrals: Cardiology - [address] Nestor Chung PCP Follow-up - [address] Jim Dave Changed Medications: Furosemide (Furosemide) 40 Mg Tab 40 MG PO DAILY If weight gain greater than 5 pounds in 48hours, then take extra lasix 40mg and call Cardiology, Dr. Chung chf Days 30 Ref 0 TAB (Changed from : BID; If weight gain greater than 5 pounds in 48hours, then take extra lasix 40mg and call Dr. Sheldon Delgado) Losartan (Losartan) 50 Mg Tab 50 MG PO DAILY hold for SBP below 120 Blood Pressure Management Days 30 Ref 0 TAB (Medication details modified) ([K Dur]) 10 MEQ DAILY Days 30 Ref 0 (Changed from: BID; Refills: ) Continued Medications: Carvedilol (Carvedilol) 6.25 Mg Tab 6.25 MG PO BID Ref 0 TAB Cholecalciferol (Vitamin D3) 1,000 Unit Tab 1000 UNITS PO DAILY Nutritional Supplement #1 Ref 0 BOTTLE Lorazepam (Lorazepam) 0.5 Mg Tab 0.5 MG PO DAILY PRN ANXIETY Ref 0 TAB Lovastatin (Lovastatin) 40 Mg Tab 40 MG PO DAILY Cholesterol Management #30 Ref 0 TAB Warfarin (Warfarin) 3 Mg Tab 3 MG PO MONTUEWEDFRISATSUN Blood Clot Prevention #30 Ref 0 TAB Warfarin (Warfarin) 3 Mg Tab 1.5 MG PO THURS Blood Clot Prevention #30 Ref 0 TAB Zolpidem (Zolpidem) 5 Mg Tab 5 MG PO HS PRN INSOMNIA Ref 0 TAB Tito Villalpando DO Nov 13, 2016 16:17
[2016-11-13] MEDS: WARFARIN SOD 3 MG TAB PO SCH (16:25)
[2016-11-14] VITALS: BP 132/80; PULSE 82; RESP 16; TEMP 98.2; O2SAT 96
[2016-11-14 00:31] VITALS: PULSE 101
[2016-11-14 04:00] VITALS: BP 140/63; PULSE 86; RESP 16; TEMP 98.2; O2SAT 95
[2016-11-14 06:56] LABS: POTASSIUM 3.8 MEQ/L (3.5-5.1)
[2016-11-14 08:00] VITALS: BP 151/111; PULSE 65; RESP 20; TEMP 97.9; O2SAT 96
[2016-11-14] MEDS: PRAVASTATIN SOD 40 MG TAB PO SCH (09:32)
[2016-11-14] MEDS: FUROSEMIDE 40 MG TAB PO SCH (09:32)
[2016-11-14] MEDS: POTASSIUM CHLORIDE 20 MEQ CONTROLLED RELEASE TAB PO SCH (09:33)
--- NOTE | 2016-11-14 10:54 | HHI.FF ---
Face to Face Verification Diagnosis: (1) Systolic CHF (2) CKD (chronic kidney disease) stage 3, GFR 30-59 ml/min (3) Dehydration (4) Weakness (5) Hyponatremia (6) Hypokalemia Physical Therapy Order: Evaluate and Treat, Improve ambulation Home Health Nursing Order: Signs/symptoms of disease process Medication education-adverse effect Nursing assessment with vital signs I have seen patient Sunita Keane on 11/14/16. My clinical findings support the need for the requested home health care services because: Deconditioned w/ increased weakness I certify that my clinical findings support that this patient is homebound because: Poor cardiac reserve Pedro Doyle MD Nov 14, 2016 10:54
[2016-11-17] MEDS ORDERED: WARFARIN SOD 3 MG TAB PO SCH (16:00)
== END 2016-11-14 09:42 | disposition home health service (06) | DRG 641 ==
LOC: NEPC 03:14 → NEDA 06:38 → N04A 09:03 → OBSVTOIN 11-12 15:06 → UNDODISIN 11-14 09:48
PROVIDERS: ADMIT Hospitalist; ATTEND Hospitalist
DX: E86.0 Dehydration (principal); I13.0 Hypertensive heart and chronic kidney disease with heart failure and stage 1 through stage 4 chronic kidney disease, or unspecified chronic kidney disease; I50.22 Chronic systolic (congestive) heart failure; I42.9 Cardiomyopathy, unspecified; I48.2 Chronic atrial fibrillation; R27.0 Ataxia, unspecified; E87.1 Hypo-osmolality and hyponatremia; N18.3 Chronic kidney disease, stage 3 (moderate); I35.0 Nonrheumatic aortic (valve) stenosis; M25.511 Pain in right shoulder; Z79.01 Long term (current) use of anticoagulants; Z86.73 Personal history of transient ischemic attack (TIA), and cerebral infarction without residual deficits
CPT/HCPCS: 70450; 71010; 72125; 73030; 80048; 80053; 82550; 83735; 85025; 85610; 85730; 93005; 96374; G0378; G8987-GP; G8988-GP; J3480

== ENCOUNTER 2016-12-13 11:10 | Emergency (ER) | payer MEDICARE ==
[~2016-12-13] VITALS: Ht 167.6 cm; Wt 82.3 kg
[~2016-12-13 11:10] MED LIST changes: -ALBU0.08 NEB; -COLA100C3 PO; -IPRA0.02 NEB; -METO5TAB3 PO; -PRED20 PO; -TEMA15CA PO
[2016-12-13 11:12] VITALS: BP 183/107; PULSE 93; RESP 28; O2SAT 96
[2016-12-13 12:27] VITALS: BP 174/124; PULSE 61; RESP 20; O2SAT 97
[2016-12-13] MEDS ORDERED: SODIUM CHLORIDE 0.9% FLUSH 10 ML FLUSH IVF PRN (12:30)
--- NOTE | 2016-12-13 12:31 | PD ---
HPI Chief Complaint: Cardiac Complaint Time Seen by Provider: 12:28 Travel History International Travel<30 days: No Contact w/Intl Traveler<30days: No Traveled to known affect area: No History of Present Illness HPI Patient comes in at the advice for primary care doctor for possible CHF exacerbation. Patient states over the past 5 days increasing dyspnea is worse on exertion. Patient has noted increased swelling of bilateral lower extremities. Patient states she took her Lasix for this which has helped with edema but not the dyspnea. Patient denies any nausea, vomiting chest pain, fevers, abdominal pain, headaches, or dizziness. Patient reports her animal science instructor Dr. Chung. [facility] Past Medical History Hx Anticoagulant Therapy: Yes (warfarin) Arthritis: No Asthma: No Atrial Fibrillation: Yes Blood Disorders: No Heart Rhythm Problems: Yes (AFIB) Cancer: No Cardiac Catheterization: Yes Cardiovascular Problems: Yes (chf, htn) High Cholesterol: Yes Chest Pain: Yes Congestive Heart Failure: Yes COPD: No Coronary Artery Disease: Yes Diabetes: No Diminished Hearing: No Endocrine: No Glaucoma: No Genitourinary: Yes Hepatitis: No Hiatal Hernia: No Hypertension: Yes Immune Disorder: No Musculoskeletal: Yes Neurologic: Yes Psychiatric: No Reproductive: No Respiratory: Yes Immunizations Current: Yes Myocardial Infarction: No Sleep Apnea: No Thyroid Disease: No Menopausal: Yes Past Surgical History Abdominal Surgery: No AICD: No Arteriovenous Shunt: No Cardiac Surgery: Yes (CARDIAC CATH) Ear Surgery: No Endocrine Surgery: No Eye Surgery: Yes (CATARACT SX LEFT EYE) Genitourinary Surgery: No Gynecologic Surgery: No Insulin Pump: No Joint Replacement: No Oral Surgery: No Pacemaker: No Thoracic Surgery: No Other Surgery: Yes (SURGERY R. ANKLE) Social History Alcohol Use: Yes (WINE X WEEK) Tobacco Use: No Substance Use: No Allergies-Medications (Allergen,Severity, Reaction): Coded Allergies: Codeine (Verified Allergy, Severe, RASH AND VOMITING, 12/13/16) Reported Meds & Prescriptions Reported Meds & Active Scripts Active Losartan (Losartan Potassium) 50 Mg Tab 50 Mg PO BID Furosemide 40 Mg Tab 40 Mg PO DAILY 30 Days If weight gain greater than 5 pounds in 48hours, then take extra lasix 40mg and call Cardiology, Dr. Chung Losartan (Losartan Potassium) 50 Mg Tab 50 Mg PO DAILY 30 Days hold for SBP below 120 [K Dur] 10 Meq DAILY 30 Days Nebulizer 1 Mis Mis 1 Ea .ROUTE DIRECTED Nebulizer Kit/Tubing/Mout (N/A) 1 Kit Kit 1 Kit FM DIRECTED Reported Carvedilol 6.25 Mg Tab 6.25 Mg PO BID Zolpidem (Zolpidem Tartrate) 5 Mg Tab 5 Mg PO HS PRN Warfarin 3 Mg Tab 1.5 Mg PO THURS Warfarin 3 Mg Tab 3 Mg PO MONTUEWEDFRISATSUN Lovastatin 40 Mg Tab 40 Mg PO DAILY Lorazepam 0.5 Mg Tab 0.5 Mg PO DAILY PRN Vitamin D3 (Cholecalciferol) 1,000 Unit Tab 1,000 Units PO DAILY Review of Systems Except as stated in HPI: all other systems reviewed are Neg Physical Exam Narrative GENERAL: Well-developed, overly nourished, in no acute distress, and non-ill appearing. SKIN: Focused skin assessment warm and dry. HEAD: Atraumatic. Normocephalic. EYES: Pupils equal and round. EOMI. No scleral icterus. No injection or drainage. ENT: No nasal bleeding or discharge. Mucous membranes pink and moist. NECK: Trachea midline. Supple. No nuclear rigidity. CARDIOVASCULAR: Regular rate and rhythm. Murmur appreciated. RESPIRATORY: No accessory muscle use. No respiratory distress. Scant expiratory wheezing noted throughout. Breath sounds equal bilaterally. GASTROINTESTINAL: Abdomen soft, non-tender, nondistended. Hepatic and splenic margins not palpable. Normal bowel sounds 4. No pulsatile mass. MUSCULOSKELETAL: No obvious deformities. No clubbing. No cyanosis. No edema. Full range of motion. NEUROLOGICAL: Awake and alert. No obvious cranial nerve deficits. Motor grossly within normal limits. Normal speech. PSYCHIATRIC: Appropriate mood and affect; insight and judgment normal. Data Data Last Documented VS Vital Signs Date Time Temp Pulse Resp B/P Pulse Ox O2 Delivery O2 Flow Rate FiO2 12/13/16 13:39 97 Nasal Cannula 12/13/16 12:27 61 20 174/124 Orders Electrocardiogram (12/13/16 11:55) Complete Blood Count With Diff (12/13/16 12:25) Comprehensive Metabolic Panel (12/13/16 12:25) B-Type Natriuretic Peptide (12/13/16 12:25) Act Partial Throm Time (Ptt) (12/13/16 12:25) Prothrombin Time / Inr (Pt) (12/13/16 12:25) Ckmb (Isoenzyme) Profile (12/13/16 12:25) Troponin I (12/13/16 12:25) Urinalysis - C+S If Indicated (12/13/16 12:25) Iv Access Insert/Monitor (12/13/16 12:25) Ecg Monitoring (12/13/16 12:25) Oximetry (12/13/16 12:25) Oxygen Administration (12/13/16 12:25) Chest, Single Ap (12/13/16 12:25) Sodium Chloride 0.9% Flush (Ns Flush) (12/13/16 12:30) Labs Laboratory Tests Test 12/13/16 12/13/16 12:30 13:35 White Blood Count 6.7 TH/MM3 Red Blood Count 3.71 MIL/MM3 Hemoglobin 11.3 GM/DL Hematocrit 33.8 % Mean Corpuscular Volume 90.9 FL Mean Corpuscular Hemoglobin 30.3 PG Mean Corpuscular Hemoglobin 33.4 % Concent Red Cell Distribution Width 15.1 % Platelet Count 209 TH/MM3 Mean Platelet Volume 8.7 FL Neutrophils (%) (Auto) 68.1 % Lymphocytes (%) (Auto) 18.1 % Monocytes (%) (Auto) 10.3 % Eosinophils (%) (Auto) 2.8 % Basophils (%) (Auto) 0.7 % Neutrophils # (Auto) 4.6 TH/MM3 Lymphocytes # (Auto) 1.2 TH/MM3 Monocytes # (Auto) 0.7 TH/MM3 Eosinophils # (Auto) 0.2 TH/MM3 Basophils # (Auto) 0.0 TH/MM3 CBC Comment DIFF FINAL Differential Comment Prothrombin Time 19.4 SEC Prothromb Time International 1.7 RATIO Ratio Activated Partial 29.4 SEC Thromboplast Time Sodium Level 140 MEQ/L Potassium Level 3.6 MEQ/L Chloride Level 104 MEQ/L Carbon Dioxide Level 29.8 MEQ/L Anion Gap 6 MEQ/L Blood Urea Nitrogen 11 MG/DL Creatinine 1.12 MG/DL Estimat Glomerular Filtration 46 ML/MIN Rate Random Glucose 88 MG/DL Calcium Level 9.0 MG/DL Total Bilirubin 0.8 MG/DL Aspartate Amino Transf 16 U/L (AST/SGOT) Alanine Aminotransferase 17 U/L (ALT/SGPT) Alkaline Phosphatase 87 U/L Total Creatine Kinase 66 U/L Troponin I LESS THAN 0.02 NG/ML B-Type Natriuretic Peptide 557 PG/ML Total Protein 7.2 GM/DL Albumin 3.5 GM/DL Urine Color LIGHT-YELLOW Urine Turbidity CLEAR Urine pH 7.0 Urine Specific [place] 1.004 Urine Protein NEG mg/dL Urine Glucose (UA) NEG mg/dL Urine Ketones NEG mg/dL Urine Occult Blood NEG Urine Nitrite NEG Urine Bilirubin NEG Urine Urobilinogen LESS THAN 2.0 MG/DL Urine Leukocyte Esterase NEG Urine WBC LESS THAN 1 /hpf Microscopic Urinalysis Comment CULT NOT INDICATED MDM Medical Decision Making Medical Screen Exam Complete: Yes Emergency Medical Condition: Yes Interpretation(s) EKG reviewed by Dr. Gong, shows atrial fibrillation with ventricular rate of 93. No STEMI. Differential Diagnosis Pneumonia, CHF exacerbation, acute coronary syndrome, deconditioning, other Narrative Course Patient in no obvious distress upon re-evaluation. All pertinent laboratory/ Radiology result(s) discussed with patient/family. Discussed patient with Dr. Gong, who saw and evaluated the patient and is in agreement with plan of care and disposition. Any questions/concerns in reference to patient diagnosis/ condition discussed and clarified prior to patient's discharge. Reinforced sheer importance of close follow up with patient's primary physician or primary care clinic and animal science instructor. Instructed patient to return to ED immediately, if symptoms return/worsen. Pt showed understanding of above instructions. Further instructions and recommendations were detailed in discharge paperwork. Pt ambulated without difficulty out of ED at discharge. Physician Communication Physician Communication [id number] discussed patient with her primary care physician Dr. Jim schwarz, who recommends increasing losartan 50 mg twice a day and follow-up with his office later this week. Diagnosis Primary Impression: Dyspnea Qualified Code: R06.00 - Dyspnea, unspecified type Additional Impression: HTN (hypertension) Qualified Code: I15.9 - Secondary hypertension Patient Instructions: Chronic Hypertension (ED), Dyspnea (ED), General Instructions Additional Instructions: Follow-up with your primary care physician and animal science instructor this week. Increase your losartan to twice daily. Return to the emergency department if symptoms get worse. Med/Other Pt SpecificInfo: Prescription(s) given Scripts Losartan 50 Mg Tab50 Mg PO BID #14 TAB Ref 0 Prov:Sivakumar Gong MD 12/13/16 Disposition: 01 DISCHARGE HOME Condition: Stable Bill Huerta Dec 13, 2016 12:31
[2016-12-13 13:00] LABS: AUTOMATED NEUTROPHIL # 4.6 TH/MM3 (1.8-7.7); BASOPHIL % 0.7 % (0.0-2.0); EOSINOPHIL # 0.2 TH/MM3 (0-0.4); EOSINOPHIL % 2.8 % (0.0-4.0); HEMATOCRIT 33.8 % (35.0-46.0); HEMO FLAGS DIFF FINAL; LYMPH % 18.1 % (9.0-44.0); LYMPHOCYTE # 1.2 TH/MM3 (1.0-4.8); MEAN CELL VOLUME 90.9 FL (80.0-100.0); MEAN CORPUSCULAR HEMOGLOBIN 30.3 PG (27.0-34.0); MEAN CORPUSCULAR HGB CONC 33.4 % (32.0-36.0); MONO % 10.3 % (0.0-8.0); NEUT % 68.1 % (16.0-70.0); PLATELET COUNT 209 TH/MM3 (150-450); RED BLOOD COUNT 3.71 MIL/MM3 (4.00-5.30); RED CELL DISTRIBUTION WIDTH 15.1 % (11.6-17.2); WHITE BLOOD COUNT 6.7 TH/MM3 (4.0-11.0)
[2016-12-13 13:12] LABS: APTT (PATIENT) 29.4 SEC (24.3-30.1); INTERNATIONAL NORMALIZED RATIO 1.7 RATIO; PROTHROMBIN TIME - PATIENT 19.4 SEC (9.8-11.6)
[2016-12-13 13:17] LABS: ALT (GPT) 17 U/L (10-53); ANION GAP 6 MEQ/L (5-15); AST (GOT) 16 U/L (15-37); BICARBONATE 29.8 MEQ/L (21.0-32.0); BLOOD UREA NITROGEN 11 MG/DL (7-18); CHLORIDE 104 MEQ/L (98-107); GLOMERULAR FILTRATION RATE 46 ML/MIN (>89); POTASSIUM 3.6 MEQ/L (3.5-5.1); SODIUM (NA) 140 MEQ/L (136-145)
[2016-12-13 13:21] LABS: ALKALINE PHOSPHATASE 87 U/L (45-117); TOTAL BILIRUBIN ADULT 0.8 MG/DL (0.2-1.0)
[2016-12-13 13:22] LABS: CREATINE KINASE 66 U/L (26-192)
--- NOTE | 2016-12-13 13:36 | RADRPT ---
EXAM DATE/TIME: 12/13/2016 12:59 [facility] COMPARISON: CHEST SINGLE AP, November 11, 2016, 4:36. INDICATIONS : Shortness of breath. MEDICAL HISTORY : Congestive heart failure. SURGICAL HISTORY : None. ENCOUNTER: Initial ACUITY: 2 weeks PAIN SCORE: 0/10 LOCATION: Bilateral chest FINDINGS: Moderate cardiomegaly and consolidation in the left lower lung with loss of delineation of the diaphr agm a similar appearance to prior examination 11/11/16. The right lung is clear. Calcification of th e tracheobronchial cartilage. CONCLUSION: Stable appearance of chest with cardiomegaly and left lower lobe consolidation. Chago Roach MD on December 13, 2016 at 13:33 Board Certified Radiologist. This report was verified electronically.
[2016-12-13 14:08] LABS: BLOOD, URINE NEG (NEG); COMMENT (UR) CULT NOT INDICATED; CULTURE IF INDICATED CULT NOT INDICATED; GLUCOSE,URINE NEG (NEG); KETONE, URINE NEG (NEG); NITRITE,URINE NEG (NEG); URINE COLOR LIGHT-YELLOW (YELLW/STRAW)
--- NOTE | 2016-12-13 14:16 | PD ---
Data Data Last Documented VS Vital Signs Date Time Temp Pulse Resp B/P Pulse Ox O2 Delivery O2 Flow Rate FiO2 12/13/16 13:39 97 Nasal Cannula 12/13/16 12:27 61 20 174/124 Orders Electrocardiogram (12/13/16 11:55) Complete Blood Count With Diff (12/13/16 12:25) Comprehensive Metabolic Panel (12/13/16 12:25) B-Type Natriuretic Peptide (12/13/16 12:25) Act Partial Throm Time (Ptt) (12/13/16 12:25) Prothrombin Time / Inr (Pt) (12/13/16 12:25) Ckmb (Isoenzyme) Profile (12/13/16 12:25) Troponin I (12/13/16 12:25) Urinalysis - C+S If Indicated (12/13/16 12:25) Iv Access Insert/Monitor (12/13/16 12:25) Ecg Monitoring (12/13/16 12:25) Oximetry (12/13/16 12:25) Oxygen Administration (12/13/16 12:25) Chest, Single Ap (12/13/16 12:25) Sodium Chloride 0.9% Flush (Ns Flush) (12/13/16 12:30) Labs Laboratory Tests Test 12/13/16 12/13/16 12:30 13:35 White Blood Count 6.7 TH/MM3 Red Blood Count 3.71 MIL/MM3 Hemoglobin 11.3 GM/DL Hematocrit 33.8 % Mean Corpuscular Volume 90.9 FL Mean Corpuscular Hemoglobin 30.3 PG Mean Corpuscular Hemoglobin 33.4 % Concent Red Cell Distribution Width 15.1 % Platelet Count 209 TH/MM3 Mean Platelet Volume 8.7 FL Neutrophils (%) (Auto) 68.1 % Lymphocytes (%) (Auto) 18.1 % Monocytes (%) (Auto) 10.3 % Eosinophils (%) (Auto) 2.8 % Basophils (%) (Auto) 0.7 % Neutrophils # (Auto) 4.6 TH/MM3 Lymphocytes # (Auto) 1.2 TH/MM3 Monocytes # (Auto) 0.7 TH/MM3 Eosinophils # (Auto) 0.2 TH/MM3 Basophils # (Auto) 0.0 TH/MM3 CBC Comment DIFF FINAL Differential Comment Prothrombin Time 19.4 SEC Prothromb Time International 1.7 RATIO Ratio Activated Partial 29.4 SEC Thromboplast Time Sodium Level 140 MEQ/L Potassium Level 3.6 MEQ/L Chloride Level 104 MEQ/L Carbon Dioxide Level 29.8 MEQ/L Anion Gap 6 MEQ/L Blood Urea Nitrogen 11 MG/DL Creatinine 1.12 MG/DL Estimat Glomerular Filtration 46 ML/MIN Rate Random Glucose 88 MG/DL Calcium Level 9.0 MG/DL Total Bilirubin 0.8 MG/DL Aspartate Amino Transf 16 U/L (AST/SGOT) Alanine Aminotransferase 17 U/L (ALT/SGPT) Alkaline Phosphatase 87 U/L Total Creatine Kinase 66 U/L Troponin I LESS THAN 0.02 NG/ML B-Type Natriuretic Peptide 557 PG/ML Total Protein 7.2 GM/DL Albumin 3.5 GM/DL Urine Color LIGHT-YELLOW Urine Turbidity CLEAR Urine pH 7.0 Urine Specific [place] 1.004 Urine Protein NEG mg/dL Urine Glucose (UA) NEG mg/dL Urine Ketones NEG mg/dL Urine Occult Blood NEG Urine Nitrite NEG Urine Bilirubin NEG Urine Urobilinogen LESS THAN 2.0 MG/DL Urine Leukocyte Esterase NEG Urine WBC LESS THAN 1 /hpf Microscopic Urinalysis Comment CULT NOT INDICATED MDM Supervised Visit with MICAELA: Yes Narrative Course The history, exam, and medical decision-making in the associated mid-level provider note were completed with my assistance. I reviewed and agree with the findings presented. I attest that I had a [id number] encounter with the patient on the same day, and personally performed and documented my assessment and findings in the medical record. *My assessment and Findings: 86-year-old with a history of heart failure presents emergent arm worsening trouble breathing and reportedly referred in by her doctor for possible CHF exacerbation. Multiple previous similar symptoms. Multiple medical comorbidities. Overall she looks really well. She's had trouble with her diuretics in the past was admitted for hyponatremia and renal failure when she was on Zaroxolyn before. She is currently on Lasix twice a day. She follows with Dr. schwarz. Labs here unremarkable. BNP is not significantly elevated. Chest x-ray shows cardiomegaly, but no obvious pulmonary edema. Was read as having a left lower lobe infiltrate, I don't appreciate any significant abnormality. She does not have pneumonia symptoms. We spoke with her primary physician, recommend close outpatient follow-up. Sivakumar Gong MD Dec 13, 2016 14:16
[2016-12-13] MEDS ORDERED: LOSA50TA PO (14:19)
--- NOTE | 2016-12-13 23:51 | EKG ---
Date Performed: 12/13/2016 Time Performed: 12:06:12 PTAGE: 86 years EKG: ATRIAL FIBRILLATION Nonspecific ST and T wave abnormalities ABNORMAL RHYTHM ECG PREVIOUS TRACING : 11/11/2016 05.03 Compared to prior tracing no significant change DOCTOR: Jm Cates Interpretating Date/Time 12/13/2016 23:50:50
== END 2016-12-13 15:05 | disposition home or self-care (01) ==
LOC: NEPE 11:10
DX: R06.00 Dyspnea, unspecified (principal); I15.9 Secondary hypertension, unspecified; I50.9 Heart failure, unspecified; Z79.01 Long term (current) use of anticoagulants
CPT/HCPCS: 71010; 80053; 81001; 82550; 83880; 84484; 85025; 85610; 85730; 93005

== ENCOUNTER 2017-01-23 07:06 | Observation (INO) | payer MEDICARE ==
[2017-01-23] VITALS (10 sets, daily range): BP systolic 138–174; BP diastolic 90–134; PULSE 85–95; RESP 16–20; TEMP 96.1–97.4; O2SAT 94–96
[~2017-01-23] VITALS: Ht 167.6 cm; Wt 83.5 kg
--- NOTE | 2017-01-23 07:29 | PD ---
HPI Chief Complaint: Chest Pain Time Seen by Provider: 07:16 Travel History International Travel<30 days: No Contact w/Intl Traveler<30days: No Traveled to known affect area: No History of Present Illness HPI 86yo F with PMH of afib on coumadin, CHF, CKD, HTN, HLD, TIA presents to the ED with c/o left sided chest pain since yesterday afternoon. Pt states it is hard to describe type of pain and it is constant, nonradiating. Associated with sob , nausea. +Cough. Denies any fever, vomiting, abdominal pain, focal weakness or numbness. Tool Design Draftsperson is Dr. Chung. Never had cardiac cath or stent. PFSH Past Medical History Hx Anticoagulant Therapy: Yes (warfarin) Arthritis: No Asthma: No Atrial Fibrillation: Yes Blood Disorders: No Heart Rhythm Problems: Yes (AFIB) Cancer: No Cardiac Catheterization: Yes Cardiovascular Problems: Yes (chf, htn) High Cholesterol: Yes Chest Pain: Yes Congestive Heart Failure: Yes COPD: No Coronary Artery Disease: Yes Diabetes: No Diminished Hearing: Yes Endocrine: No Glaucoma: No Genitourinary: Yes Hepatitis: No Hiatal Hernia: No Hypertension: Yes Immune Disorder: No Musculoskeletal: Yes Neurologic: Yes Psychiatric: No Reproductive: No Respiratory: Yes Immunizations Current: No Myocardial Infarction: No Sleep Apnea: No Thyroid Disease: No Menopausal: Yes Past Surgical History Abdominal Surgery: No AICD: No Arteriovenous Shunt: No Cardiac Surgery: Yes (CARDIAC CATH) Ear Surgery: No Endocrine Surgery: No Eye Surgery: Yes (CATARACT SX LEFT EYE) Genitourinary Surgery: No Gynecologic Surgery: No Insulin Pump: No Joint Replacement: No Oral Surgery: No Pacemaker: No Thoracic Surgery: No Other Surgery: Yes (SURGERY R. ANKLE) Social History Alcohol Use: No Tobacco Use: No Substance Use: No Allergies-Medications (Allergen,Severity, Reaction): Coded Allergies: Codeine (Verified Allergy, Severe, RASH AND VOMITING, 12/13/16) Reported Meds & Prescriptions Reported Meds & Active Scripts Active Losartan (Losartan Potassium) 50 Mg Tab 50 Mg PO BID Reported Potassium Chloride ER (Potassium Chloride) 20 Meq Tab 20 Meq PO BID Furosemide 40 Mg Tab 40 Mg PO BID Carvedilol 6.25 Mg Tab 6.25 Mg PO BID Zolpidem (Zolpidem Tartrate) 5 Mg Tab 5 Mg PO HS PRN Warfarin 3 Mg Tab 1.5 Tab PO MENDOZA Warfarin 3 Mg Tab 3 Mg PO ,,,,MON,SA Lovastatin 40 Mg Tab 40 Mg PO DAILY Lorazepam 0.5 Mg Tab 0.5 Mg PO DAILY PRN Vitamin D3 (Cholecalciferol) 1,000 Unit Tab 1,000 Units PO DAILY Review of Systems Except as stated in HPI: all other systems reviewed are Neg Physical Exam Narrative GENERAL: 86yo F in mild distress. SKIN: Focused skin assessment warm/dry. HEAD: Atraumatic. Normocephalic. NECK: Trachea midline. No JVD. CARDIOVASCULAR: Regular rate and rhythm. No murmur appreciated. RESPIRATORY: +accessory muscle use. Mild bibasilar crackles. Equal breath sounds. O2 sat 96% RA. GASTROINTESTINAL: Abdomen soft, non-tender, nondistended. MUSCULOSKELETAL: No obvious deformities. No clubbing. No cyanosis. +bilateral lower extremity edema. NEUROLOGICAL: Awake and alert. No obvious cranial nerve deficits. Motor grossly within normal limits. Normal speech. PSYCHIATRIC: Appropriate mood and affect; insight and judgment normal. Data Data Last Documented VS Vital Signs Date Time Temp Pulse Resp B/P Pulse Ox O2 Delivery O2 Flow Rate FiO2 01/23/17 08:10 94 18 138/108 96 01/23/17 07:38 Room Air 01/23/17 07:15 97.4 Orders Electrocardiogram (01/23/17 07:09) Complete Blood Count With Diff (01/23/17 07:09) Basic Metabolic Panel (Bmp) (01/23/17 07:09) Ckmb (Isoenzyme) Profile (01/23/17 07:09) Troponin I (01/23/17 07:09) Chest, Single Ap (01/23/17 07:09) Iv Access Insert/Monitor (01/23/17 07:09) Ecg Monitoring (01/23/17 07:09) Oxygen Administration (01/23/17 07:09) Oximetry (01/23/17 07:09) B-Type Natriuretic Peptide (01/23/17 07:09) Act Partial Throm Time (Ptt) (01/23/17 07:12) Prothrombin Time / Inr (Pt) (01/23/17 07:12) Bilateral Bp Monitoring (01/23/17 07:24) Nitroglycerin Sl (Nitrostat Sl) (01/23/17 07:30) Carvedilol (Coreg) (01/23/17 07:45) Losartan (Cozaar) (01/23/17 08:00) Furosemide Inj (Lasix Inj) (01/23/17 08:15) Potassium Chloride (Kcl) (01/23/17 08:15) Urinary Catheter Insert/Apply (01/23/17 08:06) Ondansetron Inj (Zofran Inj) (01/23/17 08:15) Admit Order (Ed Use Only) (01/23/17 08:24) Labs Laboratory Tests Test 01/23/17 01/23/17 07:10 07:18 White Blood Count 6.8 TH/MM3 Red Blood Count 3.85 MIL/MM3 Hemoglobin 11.6 GM/DL Hematocrit 36.1 % Mean Corpuscular Volume 93.8 FL Mean Corpuscular Hemoglobin 30.3 PG Mean Corpuscular Hemoglobin 32.3 % Concent Red Cell Distribution Width 14.9 % Platelet Count 200 TH/MM3 Mean Platelet Volume 8.8 FL Neutrophils (%) (Auto) 69.0 % Lymphocytes (%) (Auto) 17.9 % Monocytes (%) (Auto) 7.4 % Eosinophils (%) (Auto) 3.1 % Basophils (%) (Auto) 2.6 % Neutrophils # (Auto) 4.7 TH/MM3 Lymphocytes # (Auto) 1.2 TH/MM3 Monocytes # (Auto) 0.5 TH/MM3 Eosinophils # (Auto) 0.2 TH/MM3 Basophils # (Auto) 0.2 TH/MM3 CBC Comment DIFF FINAL Differential Comment Sodium Level 140 MEQ/L Potassium Level 3.6 MEQ/L Chloride Level 105 MEQ/L Carbon Dioxide Level 25.4 MEQ/L Anion Gap 10 MEQ/L Blood Urea Nitrogen 16 MG/DL Creatinine 1.20 MG/DL Estimat Glomerular Filtration 43 ML/MIN Rate Random Glucose 111 MG/DL Calcium Level 8.8 MG/DL Total Creatine Kinase 70 U/L Troponin I 0.02 NG/ML B-Type Natriuretic Peptide 918 PG/ML Prothrombin Time 22.9 SEC Prothromb Time International 2.0 RATIO Ratio Activated Partial 32.0 SEC Thromboplast Time MDM Medical Decision Making Medical Screen Exam Complete: Yes Emergency Medical Condition: Yes Interpretation(s) Afib at 107bpm. Normal axis. T wave changes I, aVL. Differential Diagnosis ACS vs. CHF exacerbation vs. Pneumonia vs. Pleural effusion vs. Afib RVR Narrative Course 86yo F with left sided chest pain since yesterday. HR is ranging in 90s to low 100s. BP is elevated at 174/134. Will give sublingual nitro for chest pain and monitor BP. Pt given sublingual nitro x1 and states chest pain is gone. BP is now 161/101. Pt did not take her morning dose of medications and is due for them. Will give her carvedilol 6.25mg and losartan 50mg PO. Continue to monitor. Labs reviewed, no leukocytosis. Troponin 0.02. BNP elevated at 918. Creatinine mildly elevated at 1.2 compare to baseline. INR 2.0. CXR showed mild interstitial opacities in a perihilar distribution that could represents mild interstitial edema. Enlarged cardiac silhouette. Pt also noted that bilateral lower extremity is mildly more swollen today. Pt given lasix 40mg IV and KCl 40mEq PO since it is 3.6. Will admit for CHF exacerbation and chest pain work up to r/o ACS. Discussed with Dr. August and accepted to her service. Diagnosis Primary Impression: Chest pain Qualified Code: R07.9 - Chest pain, unspecified type Additional Impression: CHF exacerbation Qualified Code: I50.9 - Acute on chronic congestive heart failure, unspecified congestive heart failure type Admitting Information Admitting Physician Requests: Observation Marizol Escalante DO January 23, 2017 07:29 Marizol Escalante DO January 23, 2017 07:29
[2017-01-23] MEDS ORDERED: POTA-163 PO (07:31)
[2017-01-23] MEDS ORDERED: FURO40TA PO (07:31)
[2017-01-23 07:32] LABS: AUTOMATED NEUTROPHIL # 4.7 TH/MM3 (1.8-7.7); BASOPHIL # 0.2 TH/MM3 (0-0.2); BASOPHIL % 2.6 % (0.0-2.0); EOSINOPHIL # 0.2 TH/MM3 (0-0.4); EOSINOPHIL % 3.1 % (0.0-4.0); HEMATOCRIT 36.1 % (35.0-46.0); HEMO FLAGS DIFF FINAL; LYMPH % 17.9 % (9.0-44.0); LYMPHOCYTE # 1.2 TH/MM3 (1.0-4.8); MEAN CELL VOLUME 93.8 FL (80.0-100.0); MEAN CORPUSCULAR HEMOGLOBIN 30.3 PG (27.0-34.0); MEAN CORPUSCULAR HGB CONC 32.3 % (32.0-36.0); MONO % 7.4 % (0.0-8.0); PLATELET COUNT 200 TH/MM3 (150-450); RED BLOOD COUNT 3.85 MIL/MM3 (4.00-5.30); RED CELL DISTRIBUTION WIDTH 14.9 % (11.6-17.2); WHITE BLOOD COUNT 6.8 TH/MM3 (4.0-11.0)
[2017-01-23] MEDS: NITROGLYCERIN 0.4 MG SL 25 TABS/BTL SL SCH ×3 (07:38→07:45)
[2017-01-23 07:42] LABS: POTASSIUM 3.6 MEQ/L (3.5-5.1)
[2017-01-23 07:45] LABS: BICARBONATE 25.4 MEQ/L (21.0-32.0)
[2017-01-23 07:45] LABS: PROTHROMBIN TIME - PATIENT 22.9 SEC (9.8-11.6)
[2017-01-23] MEDS ORDERED: CARVEDILOL 6.25 MG TAB PO ONE (07:45)
--- NOTE | 2017-01-23 07:51 | RADHPO ---
EXAM DATE/TIME: 01/23/2017 07:32 [facility] COMPARISON: CT THORAX W CONTRAST, June 11, 2016, 18:19. CHEST PA & LAT, June 09, 2016, 8:38. CHEST SINGLE AP, November 11, 2016, 4:36. CHEST SINGLE AP, December 13, 2016, 12:59. INDICATIONS : Chest pain. MEDICAL HISTORY : None. SURGICAL HISTORY : None. ENCOUNTER: Initial ACUITY: 1 day PAIN SCORE: 1/10 LOCATION: Left chest FINDINGS: Portable AP view the chest demonstrates persistent moderate enlargement of the cardiac silhouette wit h calcification of the aorta. There is obscuration of the left hemidiaphragm. Mild perihilar intersti tial opacities are present. No pneumothorax is visualized. Bones and soft tissues demonstrate no acut e finding. CONCLUSION: 1. Mild interstitial opacities in a perihilar distribution could represent mild interstitial edema. 2. Moderate enlargement of the cardiac silhouette similar to prior study. There is chronic obscuratio n left hemidiaphragm which could be related to the enlarged cardiac silhouette or could represent ate lectasis, effusion, or consolidation. Based on the prior studies including a prior CT, it is most lik [place] related to the enlarged cardiac silhouette. Kaleb Escalona MD on January 23, 2017 at 7:47 Board Certified Radiologist. This report was verified electronically.
[2017-01-23] MEDS ORDERED: LOSARTAN 50 MG TAB PO ONE (08:00)
[2017-01-23] MEDS ORDERED: FUROSEMIDE 40 MG/4 ML VIAL IV PUSH ONE (08:15)
[2017-01-23] MEDS ORDERED: POTASSIUM CHLORIDE 20 MEQ CONTROLLED RELEASE TAB PO ONE (08:15)
[2017-01-23] MEDS ORDERED: ONDANSETRON HCL 4 MG/2 ML VIAL IV PUSH ONE (08:15)
--- NOTE | 2017-01-23 11:19 | EKG ---
Date Performed: 01/23/2017 Time Performed: 07:07:50 PTAGE: 86 years EKG: Atrial fibrillation with rapid ventricular response Lateral ST-T changes are nonspecific Ab normal ECG No significant change from prior electrocardiogram. PREVIOUS TRACING : 12/13/2016 12.06 DOCTOR: [place]on [place] Interpretating Date/Time 01/23/2017 11:18:47
[2017-01-23] MEDS ORDERED: ONDANSETRON HCL 4 MG/2 ML VIAL IV PRN (12:30)
[2017-01-23] MEDS ORDERED: ZOLPIDEM TARTRATE 5 MG TAB PO PRN (12:30)
[2017-01-23] MEDS ORDERED: ACETAMINOPHEN 500 MG CPLT PO PRN (12:30)
[2017-01-23] MEDS ORDERED: LORazepam 0.5 MG TAB PO PRN (12:30)
[2017-01-23] MEDS ORDERED: NITROGLYCERIN 2% OINT 1 GM PACKET TOPICAL SCH (15:00)
[2017-01-23] MEDS ORDERED: DO NOT ADM ANY ANTICOAGULANT DRUGS OTHER PRN (15:15)
--- NOTE | 2017-01-23 15:48 | MH ---
cc: MAURICE NAZARIO M.D. DATE OF ADMISSION: 01/23/2017 ADMISSION DIAGNOSIS Chest pain, shortness of breath. HISTORY OF PRESENT ILLNESS Ms. Keane is a 86-year-old female who apparently over the last week has had a progressive decline in effort exercise tolerance. She states that she has been getting more short of breath with exertion and barely has been able to get up from manzo to get to the bathroom. She states this has been accompanied over the last 3 days with some nausea and increased abdominal fullness and some cough. She does relate some lower extremity edema. However, this is more prominent usually in the evenings. She is very apprehensive as she is scheduled to go to visit her daughter in [facility] within the next week and she is concerned that she may not be able to go up the flights of stairs, 13 in one area and 17 to get to the living area. Her shortness of breath increased to such a degree this morning that she became concerned that it may be another episode of congestive heart failure since she has had these episodes in the past. However, this morning this time she also relates some left-sided chest pain that was a pressure, non-radiating that she had until she got to the emergency room and received some nitroglycerin sublingual. She says that she has had chest pain in the past but it is not a frequent occurrence. PAST MEDICAL HISTORY Past medical history significant for: 1. Coronary artery disease with a 40% ostial stenosis of the LAD and a heart catheterization done in October of 2007. She does have nonischemic cardiomyopathy with an EF of 30-35% per echo. 2. She has a history of atrial fibrillation. 3. Alejandre's cyst. 4. Chronic kidney disease, her last GFR in the office at 47. 5. History of hypertension. She tells me her blood pressure usually runs on the high side. 6. She does have some hyperlipidemia. PAST SURGICAL HISTORY 1. Heart catheterization in 2007. It would look like she had a myocardial perfusion scan in July of 2016 which showed no reversible ischemia with EF of 30%. ALLERGIES CODEINE. CURRENT MEDICATIONS 1. Coreg 6.25 twice a day. 2. Furosemide 40 mg twice a day. 3. Lorazepam 0.5 mg daily as needed for anxiety. 4. Losartan 50 mg twice a day. 5. Lovastatin at bedtime 40 mg daily. 6. Potassium chloride 20 meq twice a day. 7. Ambien 5 mg at bedtime for insomnia. 8. She is on warfarin. She tells me she takes 3 mg one pill every day of the week except on Tuesdays when she takes one and a half. HABITS She will have occasional glass of wine. She does not smoke. SOCIAL HISTORY She is a . Her daughter is here with her in the hospital and apparently watches over her closely. 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 REVIEW OF SYSTEMS She denies fevers, chills. She does state she has slight cough. She can wheeze on occasion and has used an inhaler in the past but this has not been very helpful. She normally has a decent appetite. This weekend she had some pork chops and onion rings and BLT sandwich. According to her daughter she did not eat much of them. She does have regular bowel movements. She does not have any constipation or diarrhea. She does urinate well. She did receive some furosemide in the emergency room and she has been urinating much more. She does have some occasional lower extremity edema. She does not tell me she thinks it was more prominent recently. It does appear to be worse usually at the end of the day. PHYSICAL EXAMINATION VITAL SIGNS: Temperature is 96.8, pulse is 87, respirations 20, blood pressure is 170/92, pulse ox is 94% on room air. GENERAL: She is sitting up on the side of the bed playing cards with her daughter. She does not appear to be in acute distress. She is speaking in full sentences. She is pleasant and cooperative. HEENT: Normocephalic and atraumatic. EOM is intact. NECK: Neck is supple. LUNGS: Lungs are clear, I am not really hearing that much in the way of crackles. She has no rhonchi, rales or wheezes. HEART: Her heart is irregular. ABDOMEN: Globose. She has got good bowel sounds in all four quadrants. No midepigastric tenderness. EXTREMITIES: Show no clubbing, cyanosis or edema. LABORATORY DATA Lab work that was done when she came in showed a white count of 6.8, hemoglobin 11.6, hematocrit 36.1, platelet count of 200, sodium of 140, potassium of 3.6, BUN of 16 with a creatinine of 1.2. Her CK was 70 with a troponin of 0.02. Her BNP was 918. Her INR was 2. IMAGING STUDIES Chest x-ray showed mild interstitial opacities in the parahilar distribution which could represent mild interstitial edema with enlargement of the cardiac silhouette. EKG Her EKG when she presented showed atrial fibrillation with rapid ventricular response with nonspecific lateral ST changes. ASSESSMENT/PLAN 86-year-old female with known coronary artery disease and nonischemic cardiomyopathy, presenting to the emergency room with chest pain and shortness of breath. At this point her chest pain resolved with the nitroglycerin and presently she is feeling much more comfortable. We will go ahead and get cardiac enzymes on her. She did receive some IV Lasix today instead of her p.o. Lasix and according to the daughter she has diuresed. This apparently has improved her feeling of abdominal fullness as well. Will continue with her diuretics and her electrolyte replacement. I will ask the mineralogy professor to see her as she may be needing some medication adjustment. In terms of her atrial fibrillation, her INR is 2 today. We will continue her regular home dose of warfarin and monitor her PT/INR. In terms of her hypertension, we will continue her losartan and her Coreg. Certainly we may need to increase her Coreg pending how her course progresses. Further recommendations as the case develops. MD NANCY Cassidy/TLRobert /2:59 PM /3:18 PM
[2017-01-23] MEDS ORDERED: WARFARIN SOD 3 MG TAB PO SCH (16:00)
--- NOTE | 2017-01-23 18:06 | MB ---
cc: PJ CHUNG MD, ALAN WHITE, DONALD G. M.D. DATE OF CONSULTATION 01/23/17 HISTORY OF PRESENT ILLNESS The patient is a pleasant 86-year-old white woman I am seeing for chest discomfort. I have reviewed the patient's hospital records. She has a nonischemic cardiomyopathy. Catheterization in 2007 showed a 35-40% ejection fraction with mild disease. Echocardiogram 06/12 showed a 45% ejection fraction with mild mitral regurgitation. PAST MEDICAL HISTORY 1. Chronic atrial fibrillation on anticoagulation. 2. Hypertension. 3. Hyperlipidemia. 4. Chronic kidney disease III. 5. Hiatal hernia with esophageal reflux. 6. Mild carotid disease. 7. TIA. 8. Osteoarthritis. 9. Osteopenia. 10. Diverticulosis. 11. Cataract surgery. SOCIAL HISTORY She is a and does not smoke and occasionally drinks. ALLERGIES CODEINE. MEDICATION List reviewed. REVIEW OF SYSTEMS Remarkable for will be the history of present illness along with chronic nausea, right shoulder discomfort, inability to sleep through the night and trace pedal edema towards the end of the day. The patient notes mild to moderate dyspnea on exertion with mild orthopnea which has worsened. She has trace pedal edema towards the end of the day which is stable. She notes no palpitations, bleeding or syncope. Yesterday afternoon she had a number of hours of chest discomfort. This was a very localized area in her left mid precordial area. It was a squeeze lasting at most minutes and then would resolve. It was not exertional, pleuritic or positional and she has had none today. CARDIOLOGY STUDIES EKG showed atrial fibrillation with rapid response and nonspecific ST-T wave changes. IMAGING STUDIES Chest x-ray with cardiomegaly and perihilar opacities. LABORATORY DATA CBC essentially normal. INR 2.0, potassium 3.6, creatinine 1.2. Troponins and CPK normal. BNP elevated at 918. PHYSICAL EXAMINATION GENERAL: On exam she is alert and oriented x3 and her daughter is there. She is mildly hypertensive. VITAL SIGNS: Vital signs are stable otherwise. HEENT: There are no xanthelasma and oral pharyngeal mucosa normal. She is mildly overweight. CHEST: Clear. NECK: JVD normal. HEART: PMI is not well felt. S1-S2 with an irregular rhythm and a short 1-2/6 early peaking systolic ejection murmur at the base. ABDOMEN: Benign. EXTREMITIES: Show no cyanosis, clubbing or edema. PULSES: Carotids without bruits. Radials 1 to 2+. Femorals 1 to 2+ without bruits and pedal is 1+. She has not ambulated. PROBLEMS 1. Chest discomfort - very atypical with no acute EKG changes and negative enzymes. 2. Atrial fibrillation. 3. Nonischemic cardiomyopathy. 4. Hypertension. 5. Hyperlipidemia. RECOMMENDATIONS 1. Continue ProTime to an INR of 2 to 3. 2. Statins. 3. I have taken the liberty of increasing her Carvedilol to 12 milligrams twice a day which may help her blood pressure and slow her rhythm a little bit. 4. Continue angiotensin receptor blockers. 5. Her discomfort was very atypical. I would think that if her vital signs are stable and she has no further issues she can be discharged tomorrow. She states she does have an appointment with Dr. Chung on Monday which she will keep. I will not follow. All questions were answered. Travon Beach MD ASG/EO /3:33 PM /5:56 PM
[2017-01-23] MEDS ORDERED: CARVEDILOL 6.25 MG TAB PO SCH (21:00)
[2017-01-23] MEDS: SODIUM CHLORIDE 0.9% FLUSH 10 ML FLUSH IV FLUSH SCH (21:34)
[2017-01-23] MEDS: POTASSIUM CHLORIDE 20 MEQ CONTROLLED RELEASE TAB PO SCH (21:34)
[2017-01-23] MEDS: CARVEDILOL 12.5 MG TAB PO SCH (21:34)
[2017-01-23] MEDS: FUROSEMIDE 40 MG TAB PO SCH (21:34)
[2017-01-23] MEDS: LOSARTAN 50 MG TAB PO SCH (21:34)
[2017-01-24] VITALS: BP 145/110; PULSE 76; RESP 16; TEMP 95.6; O2SAT 96
[2017-01-24 04:00] VITALS: BP 136/100; PULSE 88; RESP 16; TEMP 98.1; O2SAT 97
[2017-01-24 06:10] VITALS: PULSE 86
[2017-01-24 06:45] LABS: INTERNATIONAL NORMALIZED RATIO 1.9 RATIO; PROTHROMBIN TIME - PATIENT 21.3 SEC (9.8-11.6)
[2017-01-24 07:16] LABS: BICARBONATE 27.5 MEQ/L (21.0-32.0); POTASSIUM 3.7 MEQ/L (3.5-5.1)
[2017-01-24 08:00] VITALS: BP 140/99; PULSE 90; RESP 18; TEMP 98.1; O2SAT 95
--- NOTE | 2017-01-24 08:21 | EKG ---
Date Performed: 01/23/2017 Time Performed: 18:15:22 PTAGE: 86 years EKG: Atrial fibrillation. Poor R wave progression - probable normal variant Septal and lateral S T-T changes are nonspecific Abnormal ECG PREVIOUS TRACING : 01/23/2017 07.07 No significant change from previous tracing noted. DOCTOR: Haja Bryson Interpretating Date/Time 01/24/2017 08:20:19
[2017-01-24 08:23] VITALS: O2SAT 95
[2017-01-24] MEDS: POTASSIUM CHLORIDE 20 MEQ CONTROLLED RELEASE TAB PO SCH (08:30)
[2017-01-24] MEDS: LOSARTAN 50 MG TAB PO SCH (08:30)
[2017-01-24] MEDS: CARVEDILOL 12.5 MG TAB PO SCH (08:30)
[2017-01-24] MEDS: FUROSEMIDE 40 MG TAB PO SCH (08:30)
[2017-01-24] MEDS: SODIUM CHLORIDE 0.9% FLUSH 10 ML FLUSH IV FLUSH SCH (08:31)
[2017-01-24] MEDS ORDERED: CHOLECALCIFEROL (VIT D3) 1000 UNIT TAB PO SCH (09:00)
[2017-01-24] MEDS ORDERED: PRAVASTATIN SOD 40 MG TAB PO SCH (09:00)
[2017-01-24] MEDS ORDERED: WARFARIN SOD 4 MG TAB PO STA (11:11)
[2017-01-24] MEDS ORDERED: WARFARIN SOD 2.5 MG TAB PO ONE ×2 (11:30→16:00)
[2017-01-24] MEDS ORDERED: WARFARIN SOD 2 MG TAB PO ONE ×2 (11:30→16:00)
--- NOTE | 2017-01-24 11:52 | HHI.PR ---
Subjective Remarks feels better this am Objective Vitals Vital Signs Date Time Temp Pulse Resp B/P Pulse Ox O2 Delivery O2 Flow Rate FiO2 01/24/17 08:23 95 21 01/24/17 08:00 98.1 90 18 140/99 95 01/24/17 06:10 86 01/24/17 04:00 98.1 88 16 136/100 97 01/24/17 00:00 95.6 76 16 145/110 96 01/23/17 20:00 85 01/23/17 20:00 96.7 85 16 145/101 96 01/23/17 20:00 96 21 01/23/17 16:00 96.2 86 20 150/90 94 01/23/17 13:23 95 21 01/23/17 12:00 96.8 87 20 170/92 94 01/23/17 01/23/17 01/24/17 14:59 22:59 06:59 Intake Total 240 ml Balance 240 ml Intake Oral 240 ml # Voids 3 # Bowel Movements 0 Result Diagram: 01/23/17 0710 01/24/17 0600 Other Results Laboratory Tests Test 01/23/17 01/23/17 01/24/17 12:56 16:43 06:00 Total Creatine Kinase 63 U/L 65 U/L Troponin I 0.02 NG/ML 0.02 NG/ML Prothrombin Time 21.3 SEC Prothromb Time International 1.9 RATIO Ratio Sodium Level 141 MEQ/L Potassium Level 3.7 MEQ/L Chloride Level 107 MEQ/L Carbon Dioxide Level 27.5 MEQ/L Anion Gap 7 MEQ/L Blood Urea Nitrogen 20 MG/DL Creatinine 1.20 MG/DL Estimat Glomerular Filtration 43 ML/MIN Rate Random Glucose 97 MG/DL Calcium Level 8.6 MG/DL Imaging Last Impressions Chest X-Ray 01/23/17 0709 Signed Impressions: Service Date/Time: Monday, January 23, 2017 07:32 - CONCLUSION: 1. Mild interstitial opacities in a perihilar distribution could represent mild interstitial edema. 2. Moderate enlargement of the cardiac silhouette similar to prior study. There is chronic obscuration left hemidiaphragm which could be related to the enlarged cardiac silhouette or could represent atelectasis, effusion, or consolidation. Based on the prior studies including a prior CT, it is most likely related to the enlarged cardiac silhouette. 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 tommorrow (2) Chronic atrial fibrillation Status: Chronic Plan: heart continued mildly elevated during hospitilization and cardiology increased her coreg to help with heart rate and blood pressure so far she has tolerated and done well she is on warfarin and her inr outpatient was 2.2 on monday she as 1.9 today will give her 4.5 mg of coumadin today and she can repeat inr tommorrow when she sees cardiology she had a question iof voulume overload and recieved iv lasix x1 in the ED and is back on her regular diuretic regimen Assessment and Plan discharge today on increased dose of coreg f/u tommorrow with cardiology to reassess and check inr Problem Qualifiers (1) Chest pain: Qualified Code: R07.9 - Chest pain, unspecified type Ashwini Weir MD January 24, 2017 11:52
[2017-01-24] MEDS ORDERED: CARV12.5 PO (11:59)
[2017-01-24] MEDS ORDERED: WARF-58 PO ×2 (11:59)
== END 2017-01-24 13:14 | disposition home or self-care (01) ==
LOC: PHED 07:06 → PHEDA 08:26 → PH3B 09:08
PROVIDERS: ADMIT Family Medicine; ATTEND Family Medicine
DX: R07.89 Other chest pain (principal); R06.02 Shortness of breath; R05 Cough; I48.2 Chronic atrial fibrillation; I42.9 Cardiomyopathy, unspecified; I13.0 Hypertensive heart and chronic kidney disease with heart failure and stage 1 through stage 4 chronic kidney disease, or unspecified chronic kidney disease; N18.3 Chronic kidney disease, stage 3 (moderate); I50.9 Heart failure, unspecified; I25.10 Atherosclerotic heart disease of native coronary artery without angina pectoris; R91.8 Other nonspecific abnormal finding of lung field; E78.5 Hyperlipidemia, unspecified; E78.00 Pure hypercholesterolemia, unspecified; K44.9 Diaphragmatic hernia without obstruction or gangrene; K21.9 Gastro-esophageal reflux disease without esophagitis; M19.90 Unspecified osteoarthritis, unspecified site; M85.80 Other specified disorders of bone density and structure, unspecified site; Z86.73 Personal history of transient ischemic attack (TIA), and cerebral infarction without residual deficits
CPT/HCPCS: 71010; 80048; 82550; 83880; 84484; 85025; 85610; 85730; 93005; 99285; G0378; J1940; J2405